=== PATIENT | male | born 1975 | race Caucasian/White ===

== ENCOUNTER → 2021-09-12 | Outpatient (CLI) | payer OTHER ==
--- NOTE | 2021-09-12 09:12 | MR ---
EXAMINATION TYPE: MR knee RT wo con DATE OF EXAM: 09/12/2021 COMPARISON: None. HISTORY: Outer pain and swelling for 45 days. TECHNIQUE: Multiplanar, multisequence imaging of the right knee is performed without IV contrast. FINDINGS: MEDIAL MENISCUS: Oblique signal posterior horn extends to inferior articular surface. Anterior horn i s intact LATERAL MENISCUS: Anterior and posterior horns are intact without tear. CRUCIATE LIGAMENTS: The anterior and posterior cruciate ligaments are intact and unremarkable. COLLATERAL LIGAMENTS: The medial collateral ligament and lateral collateral ligament complex are inta ct and unremarkable. EXTENSOR MECHANISM: Visualized quadriceps and patellar tendons are intact. EFFUSION: No significant suprapatellar joint effusion. POPLITEAL CYST: No popliteal/gonzales cyst. TRICOMPARTMENT SPACES: No significant spurring. Tricompartment joint spaces are fairly well-maintain ed CARTILAGE: Tricompartmental articular cartilage is preserved. BONE MARROW SIGNAL: No focal abnormal marrow signal is appreciated. OTHER: No additional significant abnormality is appreciated. IMPRESSION: Oblique full-thickness tear posterior horn medial meniscus otherwise unremarkable study.
== END | disposition home or self-care (01) ==
LOC: RADMRIMAIN 08:20
PROVIDERS: ATTEND Physician Assistant
DX: M23.321 Other meniscus derangements, posterior horn of medial meniscus, right knee (principal)

== ENCOUNTER → 2021-12-27 | Outpatient (CLI) | payer OTHER ==
[2021-12-27 19:21] LABS: Basophils # (A) 0.05 X 10*3/uL (0.00-0.10); Basophils % (A) 0.7 %; Eosinophils # (A) 0.16 X 10*3/uL (0.04-0.35); Eosinophils % (A) 2.3 %; HCT 47.8 % (39.6-50.0); HGB 16.6 g/dL (13.0-17.0); Immature Grans, Automated 0.4 %; Lymphocytes # (A) 2.26 X 10*3/uL (0.90-5.00); Lymphocytes % (A) 31.9 %; MCH 29.5 pg (27.0-32.0); MCHC 34.7 g/dL (32.0-37.0); MCV 84.9 fL (80.0-97.0); Mean Platelet Volume 11.3 fL (9.5-12.2); Monocytes # (A) 0.46 X 10*3/uL (0.20-1.00); Monocytes % (A) 6.5 %; NRBC Per 100 WBC 0 /100 WBCS (0.0-0.0); Neutrophils # (A) 4.12 X 10*3/uL (1.80-7.70); Neutrophils % (A) 58.2 %; Platelet Count 219 X 10*3/uL (140-440); RBC 5.63 X 10*6/uL (4.40-5.60); RDW 13.1 % (11.5-14.5); WBC 7.08 X 10*3/uL (4.50-10.00)
[2021-12-27 19:33] LABS: Anion Gap 13.7 mmol/L (10.00-18.00); Carbon Dioxide 28.3 mmol/L (20.0-27.5); Potassium 3.9 mmol/L (3.5-5.5)
== END | disposition home or self-care (01) ==
LOC: LABPAT 13:38
PROVIDERS: ATTEND Orthopaedic Surgery
DX: Z01.812 Encounter for preprocedural laboratory examination (principal); M23.91 Unspecified internal derangement of right knee
CPT/HCPCS: 36415; 80051; 85025

== ENCOUNTER 2022-01-22 10:13 | Day surgery (SDC) | payer OTHER ==
[2022-01-18 15:34] VITALS: BMI 35.8
--- NOTE | 2022-01-21 13:21 | HP ---
HISTORY AND PHYSICAL REASON FOR ADMISSION: Surgery scheduled for 01/22/2022 HISTORY OF PRESENT ILLNESS: Darryl Spears is a 46-year-old patient seen with progressive right knee pain. Options were discussed. He elected to proceed with right knee arthroscopy. Consent obtained. PAST MEDICAL HISTORY: Hypertension, hyperlipidemia. PAST SURGICAL HISTORY: Noncontributory. MEDICATIONS: Amlodipine, atenolol, Naprosyn, simvastatin. ALLERGIES: None. SOCIAL HISTORY: Denies tobacco use. PHYSICAL EVALUATION OF THE RIGHT KNEE: Range of motion zero to 130. Mild effusion. Tenderness medial joint line. Positive medial Raúl's. Ligaments stable. Hip rotation without pain. Distal neurovascular exam is intact. RADIOGRAPHS: Radiographs of the right knee revealed moderate osteoarthritic changes. An MRI of the right knee revealed a medial meniscal tear. IMPRESSION: 1. Internal derangement of right knee with medial meniscal tear. 2. Hypertension. 3. Hyperlipidemia. PLAN: Right knee arthroscopy with partial medial meniscectomy and debridement. Surgery scheduled for 01/22/2022. MMODL / IJN: [id number] /
[~2022-01-22 10:13] MED LIST: DEXAMETHASONE SOD PHOSPHATE 4 MG/ML 1 ML VIAL IV ONE; HYDROmorphone 0.5 MG/0.5 ML SYRINGE IVP PRN; LACTATED RINGERS 1,000 ML IV SCH; LIDOCAINE 1% (10MG/ML) FOR IV START INTRADERMA PRN; ONDANSETRON 4 MG/2 ML VIAL IVP ONE; SCOPOLAMINE 1.5MG/72HR PATCH TRANSDERM ONE
[2022-01-22] MEDS ORDERED: BUPIVACAIN-EPI 0.25%-1:200,000 30 ML VIAL INTRAARTIC ONE (12:35)
[2022-01-22] MEDS ORDERED: ceFAZolin 1,000 MG VIAL IVPB ONE (12:35)
--- NOTE | 2022-01-22 13:18 | P.OP ---
Date of Procedure: 01/22/22 Preoperative Diagnosis: Internal derangement right knee Postoperative Diagnosis: 1. Tear medial and lateral meniscus right knee 2. Reactive synovitis medial, lateral and suprapatellar compartments right knee Procedure(s) Performed: 1. Arthroscopic partial medial and lateral meniscectomy right knee 2. Arthroscopic partial synovectomy medial, lateral and suprapatellar compartments right knee Anesthesia: GETA, local Surgeon: Samson Otero Estimated Blood Loss (ml): 7 Pathology: none sent Condition: stable Disposition: PACU Indications for Procedure: 46-year-old patient seen with progressive right knee pain. After treatment options were discussed, he elected to proceed with arthroscopy. Operative Findings: See description of procedure Description of Procedure: Patient was taken to the operative suite. Patient underwent a general anesthetic by the department of anesthesia. Patient was given preoperative antibiotics. The right lower extremity was placed in a well-padded arthroscopic leg vazquez. The right leg was prepped and draped in the normal sterile orthopedic fashion. A lateral parapatellar and suprapatellar incision was made. Trochars were inserted. Arthroscopy was initiated. Suprapatellar pouch revealed diffuse thick reactive synovitis. The patellofemoral joint appeared to articulate congruently. There was grade 1/2 chondromalacia without significant osteochondral tears present. The scope was guided into the medial gutter. No loose bodies or plica were identified The scope was then guided into the medial compartment. A medial parapatellar incision was made. Trocar inserted followed by probe. There was a large tear involving the anterior horn medial meniscus. There was a complex tear involving the posterior horn of the medial meniscus. There was thick reactive synovitis anteriorly. There was grade 1 chondromalacia diffusely with no osteochondral tears present. I performed a partial medial meniscectomy involving anterior and posterior horns getting down to stable me niscal tissue. I performed a partial synovectomy decompressing the thick reactive synovitis. The residual meniscus was stable. There was good decompression of the synovitis. Scope and probe were then guided into the intercondylar notch. Cruciates were identified, probed and found to be stable. The scope and probe were then guided into lateral compartment. There was a radial tear mid body lateral meniscus. There was thick reactive synovitis anteriorly. There was no substantial chondromalacia present. I performed a partial lateral meniscectomy getting down to stable meniscal tissue. I performed a partial synovectomy decompressing the reactive synovitis. The residual meniscus was stable. There was good decompression of the synovitis. The scope was in guided back into the suprapatellar compartment. I introduced a motorized shaver into the suprapatellar compartment. I debrided some piecemeal fragments of meniscus I encountered. I performed a partial synovectomy. Shaver was removed. There was good decompression of the synovitis. I took one more look around the entire knee, no residual debris. Instruments were now removed from the joint. The joint was infiltrated with .25% Marcaine. Steri-Strips were applied to the portal sites. Sterile dressings were applied. The patient was placed into a CLEMENCIA hose. No tourniquet was utilized. The patient was awakened, transferred to a bed and taken to recovery stable satisfactory condition.
[2022-01-22 13:23] VITALS: TEMP 97
[2022-01-22 13:34] VITALS: RESP 16
[2022-01-22 14:30] VITALS: BP 105/69; PULSE 69
[2022-01-23] MEDS ORDERED: LIDOCAINE 1% INJ 10MG/ML (20 ML MDV) ONE (12:30)
[2022-01-23] MEDS ORDERED: fentaNYL (PF) 50 MCG/ML 2 ML AMP ONE (12:30)
[2022-01-23] MEDS ORDERED: SUCCINYLCHOLINE CHLORIDE VIAL 200 MG/10 ML VIAL IV ONE (12:30)
[2022-01-23] MEDS ORDERED: PROPOFOL 10 MG/ML 20 ML VIAL IV ONE (12:30)
== END 2022-01-22 15:35 | disposition home or self-care (01) ==
LOC: OR 10:13
PROVIDERS: ATTEND Orthopaedic Surgery
DX: M23.203 Derangement of unspecified medial meniscus due to old tear or injury, right knee (principal); M23.200 Derangement of unspecified lateral meniscus due to old tear or injury, right knee; M65.861 Other synovitis and tenosynovitis, right lower leg; M94.261 Chondromalacia, right knee; I10 Essential (primary) hypertension; E78.5 Hyperlipidemia, unspecified; F32.A Depression, unspecified; K21.9 Gastro-esophageal reflux disease without esophagitis; E66.9 Obesity, unspecified; Z68.36 Body mass index [BMI] 36.0-36.9, adult; Z79.899 Other long term (current) drug therapy
CPT/HCPCS: 29880; 27334; J1100; J0690 ×2; J2405

== ENCOUNTER 2022-02-19 10:40 | Emergency (ER) | payer OTHER ==
[2022-02-19 10:50] VITALS: TEMP 97.1
[2022-02-19 11:15] VITALS: RESP 16
[2022-02-19 11:43] LABS: Basophils # (A) 0.1 k/uL (0-0.2); Basophils % (A) 1 %; Eosinophils # (A) 0.2 k/uL (0-0.7); Eosinophils % (A) 3 %; HCT 47.3 % (39.0-53.0); HGB 16.8 gm/dL (13.0-17.5); Lymphocytes # (A) 1.7 k/uL (1.0-4.8); Lymphocytes % (A) 25 %; MCH 30.6 pg (25.0-35.0); MCHC 35.5 g/dL (31.0-37.0); MCV 86.4 fL (80.0-100.0); Mean Platelet Volume 8.3; Monocytes # (A) 0.3 k/uL (0-1.0); Monocytes % (A) 5 %; Neutrophils # (A) 4.2 k/uL (1.3-7.7); Neutrophils % (A) 64 %; Platelet Count 230 k/uL (150-450); RBC 5.47 m/uL (4.30-5.90); RDW 13.6 % (11.5-15.5); WBC 6.6 k/uL (3.8-10.6)
[2022-02-19 11:49] LABS: ALT 56 U/L (4-49); AST 38 U/L (17-59); African American GFR (CKD) >90 (>60 ml/min/1.73 sqM); Albumin 4.9 g/dL (3.5-5.0); Alkaline Phosphatase 47 U/L (38-126); Anion Gap 14 mmol/L; Blood Urea Nitrogen 15 mg/dL (9-20); Calcium 9.5 mg/dL (8.4-10.2); Carbon Dioxide 28 mmol/L (22-30); Chloride 96 mmol/L (98-107); Glucose 102 mg/dL (74-99); Lipase 137 U/L (23-300); Magnesium 1.8 mg/dL (1.6-2.3); Non-African American GFR(CKD) >90 (>60 ml/min/1.73 sqM); Potassium 3.7 mmol/L (3.5-5.1); Sodium 138 mmol/L (137-145); Total Bilirubin 0.8 mg/dL (0.2-1.3); Total Protein 8.6 g/dL (6.3-8.2)
[2022-02-19 11:57] LABS: Partial Thromboplastin Time 25.9 sec (22.0-30.0); Prothrombin Time 10.5 sec (9.0-12.0)
--- NOTE | 2022-02-19 12:34 | XR ---
EXAMINATION TYPE: XR chest 2V DATE OF EXAM: 02/19/2022 COMPARISON: NONE HISTORY: Chest pain TECHNIQUE: Frontal and lateral views of the chest are obtained. FINDINGS: There is no focal air space opacity. No evidence for pneumothorax. No pleural effusion. The cardiac silhouette size is within normal limits. The osseous structures are grossly intact. IMPRESSION: 1. No acute cardiopulmonary process.
--- NOTE | 2022-02-19 12:58 | ED ---
Chest Pain HPI - General Chief Complaint: Chest Pain Stated Complaint: chest pain Time Seen by Provider: 02/19/22 10:53 Source: patient, RN notes reviewed Mode of arrival: wheelchair Limitations: no limitations - History of Present Illness Initial Comments: 46-year-old male presents emergency Department chief complaint of rib pain, side pain. Patient states his been dealing with this for last several days. [facility] here to rule out PE secondary to having right meniscus surgery 3-4 weeks ago. He does not feel short of breath. Pain with deep inspiration, hurts when he twists bends or any signs left side. She has no prior cardiac disease denies any palpitations denies any symptoms of leg swelling. He does feel better after taking pain meds at home. - Related Data Home Medications Medication Instructions Recorded Confirmed Cetirizine HCl [Zyrtec] 10 mg PO DAILY 01/18/22 01/22/22 FLUoxetine HCL [PROzac] 60 mg PO DAILY 01/18/22 01/22/22 Omeprazole 20 mg PO DAILY 01/18/22 01/22/22 Simvastatin [Zocor] 80 mg PO DAILY 01/18/22 01/22/22 amLODIPine [Norvasc] 10 mg PO DAILY 01/18/22 01/22/22 atenoloL [Tenormin] 25 mg PO DAILY 01/18/22 01/22/22 buPROPion HCL [Wellbutrin SR] 150 mg PO DAILY 01/18/22 01/22/22 Naproxen Sodium [Naproxen Sodium 500 mg PO DAILY 02/19/22 02/19/22 ER] Previous Rx's Medication Instructions Recorded Cyclobenzaprine [Flexeril] 10 mg PO TID PRN #15 tab 02/19/22 Ibuprofen [Motrin] 600 mg PO Q8HR PRN #20 tab 02/19/22 Allergies Allergy/AdvReac Type Severity Reaction Status Date / Time No Known Allergies Allergy Verified 02/19/22 12:54 Review of Systems ROS Statement: Those systems with pertinent positive or pertinent negative responses have been documented in the HPI. ROS Other: All systems not noted in ROS Statement are negative. Past Medical History Past Medical History: Hyperlipidemia, Hypertension History of Any Multi-Drug Resistant Organisms: None Reported Past Surgical History: Orthopedic Surgery Past Psychological History: No Psychological Hx Reported Smoking Status: Never smoker Past Alcohol Use History: Occasional Past Drug Use History: None Reported General Exam Limitations: no limitations General appearance: alert, in no apparent distress Head exam: Present: atraumatic, normocephalic, normal inspection Eye exam: Present: normal appearance, PERRL, EOMI. Absent: scleral icterus, conjunctival injection, periorbital swelling ENT exam: Present: normal exam, normal oropharynx, mucous membranes moist Neck exam: Present: normal inspection. Absent: tenderness, meningismus, lymphadenopathy Respiratory exam: Present: normal lung sounds bilaterally, chest wall tenderness (left-sided). Absent: respiratory distress, wheezes, rales, rhonchi, stridor Cardiovascular Exam: Present: regular rate, normal rhythm, normal heart sounds. Absent: systolic murmur, diastolic murmur, rubs, gallop, clicks GI/Abdominal exam: Present: soft, normal bowel sounds. Absent: distended, tenderness, guarding, rebound, rigid Course Vital Signs 02/19/22 02/19/22 10:46 11:05 Temperature 97.1 F L Pulse Rate 62 61 Respiratory 18 16 Rate Blood Pressure 128/88 145/99 O2 Sat by Pulse 97 Oximetry Chest Pain MDM - MDM patient's labs including d-dimer, troponin are negative. He does have reproducible left-sided chest wall pain. Patient's symptoms have been present for 5 days with no acute findings I do believe this is related to muscle skeletal pain. We discussed possibility of early shingles patient will be discharged in stable condition with close follow-up with anti-inflammatories return parameters were discussed. Disposition Clinical Impression: Chest wall pain Disposition: HOME SELF-CARE Condition: Stable Instructions (If sedation given, give patient instructions): Chest Wall Pain (ED) Additional Instructions: Please return to the Emergency Department if symptoms worsen or any other concerns. Prescriptions: Cyclobenzaprine [Flexeril] 10 mg PO TID PRN #15 tab PRN Reason: Muscle Spasm Ibuprofen [Motrin] 600 mg PO Q8HR PRN #20 tab PRN Reason: Pain Is patient prescribed a controlled substance at d/c from ED?: No Referrals: [facility],Clinic [Primary Care Provider] - 1-2 days Time of Disposition: 12:58
[2022-02-19] MEDS ORDERED: ACET/COD 300 MG/30 MG STARTER PACK 6 TAB BTL PO STA (13:01)
[2022-02-19 13:14] VITALS: BP 132/80; PULSE 56
== END 2022-02-19 13:14 | disposition home or self-care (01) ==
LOC: EC 10:40
DX: R07.89 Other chest pain (principal); I10 Essential (primary) hypertension
CPT/HCPCS: 36415; 71046; 80053; 83690; 83735; 84484; 85025; 85379; 85610; 85730; 93005; 99285

== ENCOUNTER → 2023-02-28 | Outpatient (CLI) | payer OTHER ==
--- NOTE | 2023-02-28 16:58 | MR ---
EXAMINATION TYPE: MR knee LT wo con DATE OF EXAM: 02/28/2023 COMPARISON: NONE HISTORY: Left knee pain and swelling x 1 year TECHNIQUE: Multiplanar, multisequence images of the knee is performed without IV contrast. FINDINGS: MEDIAL MENISCUS: Oblique signal posterior horn extends to inferior articular surface. LATERAL MENISCUS: Anterior and posterior horns are intact without tear. CRUCIATE LIGAMENTS: The anterior and posterior cruciate ligaments are intact and unremarkable. COLLATERAL LIGAMENTS: The medial collateral ligament and lateral collateral ligament complex are inta ct and unremarkable. EXTENSOR MECHANISM: Visualized quadriceps and patellar tendons are intact. EFFUSION: No significant suprapatellar joint effusion. POPLITEAL CYST: No popliteal/gonzales cyst. TRICOMPARTMENT SPACES: Mild to moderate tricompartment joint space loss. Mild to moderate spurring pa tellofemoral compartment. CARTILAGE: Tricompartmental articular cartilage is fairly well preserved. BONE MARROW SIGNAL: Oval 7 mm low T1 and T2 lesion distal medial femoral condyle coronal image 20 of uncertain etiology but presumed nonaggressive. OTHER: Increased subcutaneous edema superficial prepatellar and infrapatellar region. IMPRESSION: 1. Oblique full-thickness tear posterior horn medial meniscus. 2. Mild to moderate tricompartment degenerative changes greatest patellofemoral compartment as detail ed above.
== END | disposition home or self-care (01) ==
LOC: RADMRIMAIN 08:05
DX: M23.222 Derangement of posterior horn of medial meniscus due to old tear or injury, left knee (principal); M17.12 Unilateral primary osteoarthritis, left knee

== ENCOUNTER 2023-04-16 08:52 | Day surgery (SDC) | payer OTHER ==
[2023-04-12 13:45] VITALS: BMI 36.9
[~2023-04-16 08:52] MED LIST changes: -DEXAMETHASONE SOD PHOSPHATE 4 MG/ML 1 ML VIAL IV ONE; -HYDROmorphone 0.5 MG/0.5 ML SYRINGE IVP PRN; -LIDOCAINE 1% (10MG/ML) FOR IV START INTRADERMA PRN; -ONDANSETRON 4 MG/2 ML VIAL IVP ONE; -SCOPOLAMINE 1.5MG/72HR PATCH TRANSDERM ONE
[2023-04-16 09:54] VITALS: TEMP 97
[2023-04-16] MEDS ORDERED: PROPOFOL 10 MG/ML 20 ML VIAL IV ONE (10:41)
--- NOTE | 2023-04-16 10:56 | P.PCN ---
Date of Procedure: 04/16/23 Procedure(s) Performed: BRIEF HISTORY: Patient is a 47-year-old pleasant male scheduled for an elective colonoscopy as a part of screening for colon cancer. PROCEDURE PERFORMED: Colonoscopy. PREOPERATIVE DIAGNOSIS: Screening for colon cancer. IV sedation per Anesthesia. PROCEDURE: After informed consent was obtained, the patient, was brought into the endoscopy unit. IV sedation was administered by Anesthesia under continuous monitoring. Digital rectal examination was normal. Initially the Olympus CF-160 flexible video colonoscope was then inserted in the rectum, gradually advanced into the cecum without any difficulty. Careful examination was performed as the scope was gradually being withdrawn. Ileocecal valve and the appendiceal orifice were visualized and appeared normal. Prep was fair.. Mucosa of the cecum, ascending colon, transverse colon, descending colon, sigmoid colon, and rectum appeared normal. Retroflexion was performed in the rectum and no lesions were seen. The patient tolerated the procedure well. IMPRESSION: Normal-appearing colon from rectum to cecum with no evidence of colorectal neoplasia. RECOMMENDATIONS: Findings of this examination were discussed with the patient as well as his family. He was advised to have a repeat colonoscopy in 10 years.
[2023-04-16 11:18] VITALS: RESP 20
[2023-04-16 11:44] VITALS: BP 111/70; PULSE 76
== END 2023-04-16 11:49 | disposition home or self-care (01) ==
LOC: ORWHC2ENDO 08:52
PROVIDERS: ATTEND Internal Medicine Gastroenterology
DX: Z12.11 Encounter for screening for malignant neoplasm of colon (principal); I10 Essential (primary) hypertension; E78.5 Hyperlipidemia, unspecified; K21.9 Gastro-esophageal reflux disease without esophagitis; Z79.899 Other long term (current) drug therapy
CPT/HCPCS: 45378; J2704

== ENCOUNTER → 2023-04-24 | Outpatient (CLI) | payer OTHER ==
[2023-04-24 20:38] LABS: Anion Gap 13.1 mmol/L (4.00-12.00); Carbon Dioxide 28.9 mmol/L (21.6-31.8); Potassium 3.7 mmol/L (3.5-5.5)
[2023-04-25 00:21] LABS: Basophils # (A) 0.07 X 10*3/uL (0.00-0.10); Eosinophils # (A) 0.14 X 10*3/uL (0.04-0.35); HCT 44.5 % (39.6-50.0); Lymphocytes # (A) 2.01 X 10*3/uL (0.90-5.00); Lymphocytes % (A) 28.4 %; MCH 29.2 pg (27.0-32.0); MCHC 33.7 d/dL (32.0-37.0); MCV 86.7 FL (80.0-97.0); Mean Platelet Volume 12.2 FL (9.5-12.2); Monocytes % (A) 5.7 %; NRBC Per 100 WBC 0 X 10*3/uL (0.00-0.01); Neutrophils # (A) 4.43 X 10*3/uL (1.80-7.70); Neutrophils % (A) 62.6 %; Platelet Count 232 X 10*3/uL (140-440); RBC 5.13 X 10*6/uL (4.40-5.60); RDW 12.8 % (11.5-14.5); WBC 7.07 X 10*3/uL (4.50-10.00)
== END | disposition home or self-care (01) ==
LOC: LABWHC1 14:50 → LABPAT 14:53
PROVIDERS: ATTEND Orthopaedic Surgery
DX: Z01.818 Encounter for other preprocedural examination (principal); M23.92 Unspecified internal derangement of left knee; R00.1 Bradycardia, unspecified
CPT/HCPCS: 80051; 85025; 93005

== ENCOUNTER 2023-05-02 08:50 | Day surgery (SDC) | payer OTHER ==
[2023-04-29 11:49] VITALS: BMI 36.9
--- NOTE | 2023-05-01 17:31 | HP ---
HISTORY AND PHYSICAL SCHEDULED DATE OF SURGERY: 05/02/2023. HISTORY OF PRESENT ILLNESS: Darryl Spears is a 47-year-old gentleman seen with progressive left knee pain. We discussed options for treatment. He elected to proceed with left knee arthroscopy. Consent was obtained. PAST MEDICAL HISTORY: Hyperlipidemia and hypertension. PAST SURGICAL HISTORY: Noncontributory. DAILY MEDICATIONS: 1. Amlodipine. 2. Atenolol. 3. Naprosyn. 4. Simvastatin. ALLERGIES: None. SOCIAL HISTORY: He denies tobacco use. PHYSICAL EVALUATION OF THE LEFT KNEE: Range of motion is -2/3 to 120 degrees. Moderate effusion. Tenderness, medial joint line. Positive medial Raúl's. Ligaments are stable. Hip rotation is without pain. Distal neurovascular exam is intact. IMAGING STUDIES: Left knee radiographs revealed mild osteoarthritis. MRI left knee revealed medial meniscal tear. IMPRESSION: 1. Internal derangement of left knee with medial meniscal tear. 2. Hypertension. 3. Hyperlipidemia. PLAN: Left knee arthroscopy with partial medial meniscectomy and debridement. MMODL / IJN: [id number] /
[~2023-05-02 08:50] MED LIST changes: -LACTATED RINGERS 1,000 ML IV SCH; +ceFAZolin 3 GM in SODIUM CHLORIDE 0.9% 100 ML IVPB PRN
[2023-05-02] MEDS ORDERED: ONDANSETRON 4 MG/2 ML VIAL IVP ONE (09:14)
[2023-05-02] MEDS ORDERED: LACTATED RINGERS 1,000 ML IV SCH (09:14)
[2023-05-02] MEDS ORDERED: DEXAMETHASONE SOD PHOSPHATE 4 MG/ML 1 ML VIAL IV ONE (09:14)
[2023-05-02] MEDS ORDERED: HYDROmorphone 0.5 MG/0.5 ML SYRINGE IVP PRN (09:14)
[2023-05-02] MEDS ORDERED: PROPOFOL 10 MG/ML 20 ML VIAL IV ONE (10:26)
[2023-05-02] MEDS ORDERED: HYDROmorphone (PF) 1 MG/ML ONE (10:26)
[2023-05-02] MEDS ORDERED: fentaNYL (PF) 50 MCG/ML 2 ML AMP ONE (10:26)
[2023-05-02] MEDS ORDERED: LIDOCAINE 2% INJ 20 MG/ML (2 ML VIAL) ONE (10:26)
[2023-05-02] MEDS ORDERED: MIDAZOLAM 2 MG/2 ML VIAL ONE (10:26)
[2023-05-02] MEDS ORDERED: BUPIVACAINE (PF) 0.25% 30 ML VIAL SQ ONE ×2 (10:27→11:06)
--- NOTE | 2023-05-02 11:24 | P.OP ---
Date of Procedure: 05/02/23 Preoperative Diagnosis: Internal derangement left knee Postoperative Diagnosis: 1. Tear medial and lateral meniscus left knee 2. Reactive synovitis medial, lateral and suprapatellar compartments left knee Procedure(s) Performed: 1. Arthroscopic partial medial and lateral meniscectomy left knee 2. Arthroscopic partial synovectomy medial, lateral and suprapatellar compartments left knee Anesthesia: LEONELA, local Surgeon: Samson Otero Estimated Blood Loss (ml): 7 Pathology: none sent Condition: stable Disposition: PACU Indications for Procedure: 47-year-old patient seen with progressive left knee pain. After treatment options were discussed, he elected to proceed with arthroscopy. Operative Findings: see description of procedure Description of Procedure: Patient was taken to the operative suite. Patient underwent a general anesthetic by the department of anesthesia. Patient was given preoperative antibiotics. The left lower extremity was placed in a well-padded arthroscopic leg vazquez. The left leg was prepped and draped in the normal sterile orthopedic fashion. A lateral parapatellar and suprapatellar incision was made. Trochars were inserted. Arthroscopy was initiated. Suprapatellar pouch revea led diffuse thick reactive synovitis. The patellofemoral joint appeared to articulate congruently. There was grade 1 chondromalacia of the patella with no tears. The scope was guided into the medial gutter. No loose bodies or plica were identified. The scope was then guided into the medial compartment. A medial parapatellar incision was made. Trocar inserted followed by probe. There was a complex tear involving the posterior horn medial meniscus. There were grade 1 chondromalacia changes about the medial compartment with no tears. There was some thick reactive synovitis anteriorly. I performed a partial medial meniscectomy getting down to stable meniscal tissue. I performed a partial synovectomy decompressing reactive synovitis. The residual meniscus was probed and was found to be stable. There was good decompression of the synovitis. Scope and probe were then guided into the intercondylar notch. Cruciates were identified, probed and found to be stable. The scope and probe were then guided into lateral compartment. There was a radial tear mid body lateral meniscus. There was no snapping chondromalacia involving lateral compartment. There was some thick reactive some-itis anteriorly. I performed a partial lateral meniscectomy getting down to stable meniscal tissue. I performed a partial synovectomy decompressing reactive synovitis. The residual meniscus was stable. There was good decompression of the synovitis. The scope was in guided back into the suprapatellar compartment. I introduced a motorized shaver into the suprapatellar compartment. I debrided some piecemeal fragments of meniscus that I encountered. I performed a partial synovectomy. The shaver was now removed. There was good decompression of the synovitis. I took one more look on the entire knee, no residual debris. Instruments were now removed from the joint. The joint was infiltrated with .25% Marcaine. Steri-Strips were applied to the portal sites. Sterile dressings were applied. The patient was placed into a CLEMENCIA hose. No tourniquet was utilized. The patient was awakened, transferred to a bed and taken to recovery stable satisfactory condition.
[2023-05-02 11:25] VITALS: TEMP 97.2
[2023-05-02 13:18] VITALS: BP 124/77; PULSE 60; RESP 18
== END 2023-05-02 13:15 | disposition home or self-care (01) ==
LOC: OR 08:50
PROVIDERS: ATTEND Orthopaedic Surgery
DX: S83.242A Other tear of medial meniscus, current injury, left knee, initial encounter (principal); S83.282A Other tear of lateral meniscus, current injury, left knee, initial encounter; M65.862 Other synovitis and tenosynovitis, left lower leg; M17.12 Unilateral primary osteoarthritis, left knee; I10 Essential (primary) hypertension; E78.5 Hyperlipidemia, unspecified; I48.91 Unspecified atrial fibrillation; K21.9 Gastro-esophageal reflux disease without esophagitis; Z79.899 Other long term (current) drug therapy
CPT/HCPCS: 29880; J2250; J1100; J0690; J2405; J3010; J1170; J2704; J2001

== ENCOUNTER 2023-05-08 07:30 | Inpatient (IN) | payer OTHER ==
[2023-05-08] MEDS ORDERED: IBUPROFEN 600 MG TAB PO STA (07:45)
[2023-05-08] MEDS ORDERED: HYDROmorphone 0.5 MG/0.5 ML SYRINGE IVP STA (07:50)
--- NOTE | 2023-05-08 07:55 | ED ---
General Adult HPI - General Chief complaint: Extremity Injury, Lower Stated complaint: L KNEE PAIN Time Seen by Provider: 05/08/23 07:33 Source: patient, EMS, RN notes reviewed Mode of arrival: EMS Limitations: no limitations - History of Present Illness Initial comments: Patient is a 47 year old male transferred to the ER from [facility] via EMS with a chief complaint of pain and fevers. At [facility], they were concerned for possible DVT since the patient is 6 days out from a left knee arthroscopy. Patient is experiencing extreme pain and received Morphine at [facility]. Patient reports he was sent home with Norcos from his procedure which he is now out of. He reports he has been taking Tylenol 3s for pain at home. Patient states he waited 3 days post op to shower. Patient denies any nausea, chest pain, shortness of breath, abdominal pain, constipation/diarrhea, or urinary symptoms. - Related Data Home Medications Medication Instructions Recorded Confirmed Cetirizine HCl [Zyrtec] 10 mg PO QAM 01/18/22 05/08/23 FLUoxetine HCL [PROzac] 60 mg PO QAM 01/18/22 05/08/23 Omeprazole 20 mg PO QAM 01/18/22 05/08/23 Simvastatin [Zocor] 80 mg PO QAM 01/18/22 05/08/23 amLODIPine [Norvasc] 10 mg PO QAM 01/18/22 05/08/23 atenoloL [Tenormin] 25 mg PO QAM 01/18/22 05/08/23 buPROPion HCL [Wellbutrin SR] 150 mg PO QAM 01/18/22 05/08/23 Naproxen Sodium [Naproxen Sodium 500 mg PO QAM 02/19/22 05/08/23 ER] Previous Rx's Medication Instructions Recorded HYDROcodone/APAP 5-325MG [[place] 1 tab PO Q6HR PRN #12 tab 05/02/23 5-325] Allergies Allergy/AdvReac Type Severity Reaction Status Date / Time No Known Allergies Allergy Verified 05/08/23 10:26 Review of Systems ROS Statement: Those systems with pertinent positive or pertinent negative responses have been documented in the HPI. ROS Other: All systems not noted in ROS Statement are negative. Past Medical History Past Medical History: Hyperlipidemia, Hypertension History of Any Multi-Drug Resistant Organisms: None Reported Past Surgical History: Orthopedic Surgery Additional Past Surgical History / Comment(s): Right & L knee surgery. Past Anesthesia/Blood Transfusion Reactions: No Reported Reaction Past Psychological History: No Psychological Hx Reported Smoking Status: Never smoker Past Alcohol Use History: Occasional Past Drug Use History: None Reported - Past Family History Father Family Medical History: Cancer General Exam Limitations: no limitations General appearance: alert, in no apparent distress, anxious Respiratory exam: Present: normal lung sounds bilaterally. Absent: respiratory distress, wheezes, rales, rhonchi, stridor Cardiovascular Exam: Present: regular rate, normal rhythm, normal heart sounds. Absent: systolic murmur, diastolic murmur, rubs, gallop, clicks GI/Abdominal exam: Present: soft, normal bowel sounds. Absent: distended, tenderness, guarding, rebound, rigid Extremities exam: Present: other (compression stocking on left leg; steri strips noted on left knee; no erythema, ecchymosis noted; slight edema noted of left knee; negative left Everette's or calf tenderness) Neurological exam: Present: alert, oriented X3, CN II-XII intact Skin exam: Present: warm, intact, diaphoretic (mild) Course Vital Signs 05/08/23 05/08/23 07:31 09:58 Temperature 100.6 F H 98.6 F Pulse Rate 77 Respiratory 18 Rate Blood Pressure 148/106 O2 Sat by Pulse 97 Oximetry Medical Decision Making - Medical Decision Making Was pt. sent in by a medical professional or institution (, PA, AIRCRAFT REFUELLER, urgent care, hospital, or long term...) When possible be specific @ -[facility] Did you speak to anyone other than the patient for history (EMS, parent, family, police, friend...)? What history was obtained from this source @ -No Did you review nursing and triage notes (agree or disagree)? Why? @ -I reviewed and agree with nursing and triage notes Were old charts reviewed (outside hosp., previous admission, EMS record, old EKG, old radiological studies, urgent care reports/EKG's, long term records)? Report findings @ -Reviewed recent or notes Differential Diagnosis (chest pain, altered mental status, abdominal pain women, abdominal pain men, vaginal bleeding, weakness, fever, dyspnea, syncope, headache, dizziness, GI bleed, back pain, seizure, CVA, palpatations, mental health, musculoskeletal)? @ -Knee pain, knee infection, EKG interpreted by me (3pts min.). @ -None X-rays interpreted by me (1pt min.). @ -Chest x-ray shows no acute process CT interpreted by me (1pt min.). @ -None done U/S interpreted by me (1pt. min.). @ -None done What testing was considered but not performed or refused? (CT, X-rays, U/S, labs)? Why? @ -None What meds were considered but not given or refused? Why? @ -None Did you discuss the management of the patient with other professionals (professionals i.e. , PA, AIRCRAFT REFUELLER, lab, RT, psych nurse, social work associate, battery loader, teacher, armored vehicle officer, correctional case manager)? Give summary @ -[Discussed the case with Brent Hernandez/yesika herr who came and evaluated the patient patient will go to the OR. They will take the patient for surgery I did ask about antibiotics prophylactically and which this will be ordered by orthopedics. I did discuss case with medicine who will be on consult and consult infectious disease. Was smoking cessation discussed for >3mins.? @ -No Was critical care preformed (if so, how long)? @ -No Were there social determinants of health that impacted care today? How? (Homelessness, low income, unemployed, alcoholism, drug addiction, transportation, low edu. Level, literacy, decrease access to med. care, fdc, rehab)? @ -No Was there de-escalation of care discussed even if they declined (Discuss DNR or withdrawal of care, Hospice)? DNR status @ -No What co-morbidities impacted this encounter? (DM, HTN, Smoking, COPD, CAD, Cancer, CVA, ARF, Chemo, Hep., AIDS, mental health diagnosis, sleep apnea, morbid obesity)? @ -None Was patient admitted / discharged? Hospital course, mention meds given and route, prescriptions, significant lab abnormalities, going to OR and other pertinent info. @ -Admitted patient retaken lower for surgery, washout secondary to left knee infection patient had recent meniscus surgery. Antibiotics will be ordered by orthopedics as directed. Undiagnosed new problem with uncertain prognosis? @ -No Drug Therapy requiring intensive monitoring for toxicity (Heparin, Nitro, Insulin, Cardizem)? @ -No Were any procedures done? @ -No Diagnosis/symptom? @ -Left knee infection Acute, or Chronic, or Acute on Chronic? @ -Acute Uncomplicated (without systemic symptoms) or Complicated (systemic symptoms)? @ -complicated Side effects of treatment? @ -No Exacerbation, Progression, or Severe Exacerbation? @ -No Poses a threat to life or bodily function? How? (Chest pain, [place], AL, pneumonia, PE, COPD, DKA, ARF, appy, cholecystitis, CVA, Diverticulitis, Homicidal, Suicidal, threat to staff... and all critical care pts) @ -No - Lab Data Result diagrams: 05/08/23 07:53 05/08/23 07:53 Lab Results 05/08/23 05/08/23 05/08/23 Range/Units 07:53 07:53 07:53 WBC 12.5 H (3.8-10.6) k/uL RBC 4.76 (4.30-5.90) m/uL Hgb 14.2 (13.0-17.5) gm/dL Hct 39.5 (39.0-53.0) % MCV 82.9 (80.0-100.0) fL MCH 29.8 (25.0-35.0) pg MCHC 35.9 (31.0-37.0) g/dL RDW 13.1 (11.5-15.5) % Plt Count 327 (150-450) k/uL MPV 8.6 Neutrophils % 76 % Lymphocytes % 15 % Monocytes % 6 % Eosinophils % 1 % Basophils % 0 % Neutrophils # 9.5 H (1.3-7.7) k/uL Lymphocytes # 1.9 (1.0-4.8) k/uL Monocytes # 0.8 (0-1.0) k/uL Eosinophils # 0.1 (0-0.7) k/uL Basophils # 0.0 (0-0.2) k/uL Hyperchromasia Slight Poikilocytosis Slight Sodium 133 L (137-145) mmol/L Potassium 3.3 L (3.5-5.1) mmol/L Chloride 91 L (98-107) mmol/L Carbon Dioxide 30 (22-30) mmol/L Anion Gap 12 mmol/L BUN 20 (9-20) mg/dL Creatinine 1.00 (0.66-1.25) mg/dL Est GFR (CKD-EPI)AfAm >90 (>60 ml/min/1.73 sqM) Est GFR (CKD-EPI)NonAf >90 (>60 ml/min/1.73 sqM) Glucose 154 H (74-99) mg/dL Calcium 8.4 (8.4-10.2) mg/dL Total Bilirubin 0.9 (0.2-1.3) mg/dL AST 52 (17-59) U/L ALT 81 H (4-49) U/L Alkaline Phosphatase 72 (38-126) U/L Total Protein 7.3 (6.3-8.2) g/dL Albumin 3.9 (3.5-5.0) g/dL Urine Color Urine Appearance (Clear) Urine pH (5.0-8.0) Ur Specific Ferriday (1.001-1.035) Urine Protein (Negative) Urine Glucose (UA) (Negative) Urine Ketones (Negative) Urine Blood (Negative) Urine Nitrite (Negative) Urine Bilirubin (Negative) Urine Urobilinogen (<2.0) mg/dL Ur Leukocyte Esterase (Negative) Influenza Type A (PCR) Not Detected (Not Detectd) Influenza Type B (PCR) Not Detected (Not Detectd) RSV (PCR) Not Detected (Not Detectd) SARS-CoV-2 (PCR) Not Detected (Not Detectd) 05/08/23 Range/Units 10:04 WBC (3.8-10.6) k/uL RBC (4.30-5.90) m/uL Hgb (13.0-17.5) gm/dL Hct (39.0-53.0) % MCV (80.0-100.0) fL MCH (25.0-35.0) pg MCHC (31.0-37.0) g/dL RDW (11.5-15.5) % Plt Count (150-450) k/uL MPV Neutrophils % % Lymphocytes % % Monocytes % % Eosinophils % % Basophils % % Neutrophils # (1.3-7.7) k/uL Lymphocytes # (1.0-4.8) k/uL Monocytes # (0-1.0) k/uL Eosinophils # (0-0.7) k/uL Basophils # (0-0.2) k/uL Hyperchromasia Poikilocytosis Sodium (137-145) mmol/L Potassium (3.5-5.1) mmol/L Chloride (98-107) mmol/L Carbon Dioxide (22-30) mmol/L Anion Gap mmol/L BUN (9-20) mg/dL Creatinine (0.66-1.25) mg/dL Est GFR (CKD-EPI)AfAm (>60 ml/min/1.73 sqM) Est GFR (CKD-EPI)NonAf (>60 ml/min/1.73 sqM) Glucose (74-99) mg/dL Calcium (8.4-10.2) mg/dL Total Bilirubin (0.2-1.3) mg/dL AST (17-59) U/L ALT (4-49) U/L Alkaline Phosphatase (38-126) U/L Total Protein (6.3-8.2) g/dL Albumin (3.5-5.0) g/dL Urine Color Yellow Urine Appearance Clear (Clear) Urine pH 6.0 (5.0-8.0) Ur Specific [place] 1.013 (1.001-1.035) Urine Protein Negative (Negative) Urine Glucose (UA) Negative (Negative) Urine Ketones Negative (Negative) Urine Blood Negative (Negative) Urine Nitrite Negative (Negative) Urine Bilirubin Negative (Negative) Urine Urobilinogen <2.0 (<2.0) mg/dL Ur Leukocyte Esterase Negative (Negative) Influenza Type A (PCR) (Not Detectd) Influenza Type B (PCR) (Not Detectd) RSV (PCR) (Not Detectd) SARS-CoV-2 (PCR) (Not Detectd) Disposition Clinical Impression: Infection of left knee Disposition: ADMITTED IP TO THIS HOSP Referrals: [facility],Clinic [Primary Care Provider] - 1-2 days Time of Disposition: 10:01
[2023-05-08 08:03] LABS: Basophils % (A) 0 %; Eosinophils # (A) 0.1 k/uL (0-0.7); Eosinophils % (A) 1 %; HCT 39.5 % (39.0-53.0); HGB 14.2 gm/dL (13.0-17.5); Hyperchromasia Slight; Lymphocytes # (A) 1.9 k/uL (1.0-4.8); Lymphocytes % (A) 15 %; MCH 29.8 pg (25.0-35.0); MCHC 35.9 g/dL (31.0-37.0); MCV 82.9 fL (80.0-100.0); Mean Platelet Volume 8.6; Monocytes # (A) 0.8 k/uL (0-1.0); Monocytes % (A) 6 %; Neutrophils # (A) 9.5 k/uL (1.3-7.7); Neutrophils % (A) 76 %; Platelet Count 327 k/uL (150-450); Poikilocytosis Slight; RBC 4.76 m/uL (4.30-5.90); RDW 13.1 % (11.5-15.5); WBC 12.5 k/uL (3.8-10.6)
[2023-05-08 08:14] LABS: ALT 81 U/L (4-49); AST 52 U/L (17-59); African American GFR (CKD) >90 (>60 ml/min/1.73 sqM); Albumin 3.9 g/dL (3.5-5.0); Alkaline Phosphatase 72 U/L (38-126); Anion Gap 12 mmol/L; Blood Urea Nitrogen 20 mg/dL (9-20); Calcium 8.4 mg/dL (8.4-10.2); Carbon Dioxide 30 mmol/L (22-30); Chloride 91 mmol/L (98-107); Glucose 154 mg/dL (74-99); Non-African American GFR(CKD) >90 (>60 ml/min/1.73 sqM); Potassium 3.3 mmol/L (3.5-5.1); Sodium 133 mmol/L (137-145); Total Bilirubin 0.9 mg/dL (0.2-1.3); Total Protein 7.3 g/dL (6.3-8.2)
--- NOTE | 2023-05-08 08:36 | US ---
EXAMINATION TYPE: US venous doppler duplex LE LT DATE OF EXAM: 05/08/2023 8:26 AM COMPARISON: NONE CLINICAL INDICATION: Male, 47 years old with history of post op pain; TKR x 6 days ago. Pain. No re dness. Not on blood thinners. SIDE PERFORMED: Left TECHNIQUE: The lower extremity deep venous system is examined utilizing real time linear array sonog lachelle with graded compression, doppler sonography and color-flow sonography. VESSELS IMAGED: Common Femoral Vein Deep Femoral Vein Greater Saphenous Vein * Femoral Vein Popliteal Vein Small Saphenous Vein * Proximal Calf Veins (* superficial vessels) Grayscale, color doppler, spectral doppler imaging performed of the deep veins of the left lower extr emity. There is normal flow, compressibility, vascular waveforms. Left Leg: Negative for DVT IMPRESSION: No ultrasound evidence for deep venous thrombosis of the left lower extremity.
--- NOTE | 2023-05-08 09:56 | XR ---
EXAMINATION TYPE: XR chest 2V DATE OF EXAM: 05/08/2023 9:51 AM COMPARISON: Chest radiographs from 02/19/2022 TECHNIQUE: XR chest 2V Frontal and lateral views of the chest. CLINICAL INDICATION:Male, 47 years old with history of fever; FINDINGS: Lungs/Pleura: There is no evidence of pleural effusion, focal consolidation, or pneumothorax. Pulmonary vascularity: Unremarkable. Heart/mediastinum: Cardiomediastinal silhouette is unremarkable. Musculoskeletal: No acute osseous pathology. IMPRESSION: No acute cardiopulmonary disease/process.
[2023-05-08 10:19] LABS: Appearance,Urine Clear (Clear); Bilirubin,Urine Negative (Negative); Blood,Urine Negative (Negative); Color,Urine Yellow; Glucose,Urine (UA) Negative (Negative); Ketones,Urine Negative (Negative); Leukocyte Esterase,Urine Negative (Negative); Nitrite,Urine Negative (Negative); Protein,Urine Negative (Negative); Specific Gravity,Urine 1.013 (1.001-1.035); Urobilinogen,Urine <2.0 mg/dL (<2.0)
[2023-05-08] MEDS ORDERED: ONDANSETRON 4 MG/2 ML VIAL IVP PRN (10:28)
[2023-05-08] MEDS ORDERED: NALOXONE 0.4 MG/ML 1 ML VIAL IV PRN (10:28)
[2023-05-08] MEDS ORDERED: HYDROcodone/APAP 5-325MG 1 EACH TAB PO PRN ×2 (10:28→15:15)
[2023-05-08] MEDS ORDERED: LACTATED RINGERS 1,000 ML IV ONE (11:08)
[2023-05-08] MEDS ORDERED: ONDANSETRON 4 MG/2 ML VIAL ONE (11:12)
[2023-05-08] MEDS ORDERED: fentaNYL (PF) 50 MCG/ML 2 ML AMP ONE (11:12)
[2023-05-08] MEDS ORDERED: MIDAZOLAM 2 MG/2 ML VIAL ONE (11:12)
[2023-05-08] MEDS ORDERED: PROPOFOL 10 MG/ML 20 ML VIAL IV ONE (11:12)
[2023-05-08] MEDS ORDERED: hydrALAZINE HCL 20 MG/ML 1 ML VIAL ONE (11:12)
[2023-05-08] MEDS ORDERED: HYDROmorphone (PF) 1 MG/ML ONE (11:12)
[2023-05-08] MEDS ORDERED: LIDOCAINE 2% INJ 20 MG/ML (2 ML VIAL) ONE (11:12)
[2023-05-08] MEDS ORDERED: SUCCINYLCHOLINE CHLORIDE 200 MG/10 ML VIAL IV ONE (11:12)
--- NOTE | 2023-05-08 11:21 | P.HPOR ---
History of Present Illness H&P Date: 05/08/23 Chief Complaint: Left knee pain, history of recent left knee arthroscopy Patient is a 47-year-old male who presented to [facility] after being transferred down from the [facility] earlier this morning. Patient woke up in the middle of night with severe left knee pain, difficulty with ambulation and fevers and chills. Patient recently underwent a left knee arthroscopy by Dr. Otero on 05/02/2023. Since being home patient has been utilizing crutches for ambulation. He denies initially presented [facility] for evaluation, there is concerns for possible blood clot versus infection, he was then transferred down to our hospital for further care. Patient was evaluated in the emergency room today, he is resting at bedside, he has multiple family members present. Patient minutes to severe pain involving the left knee, he has a very time flexing or extending the knee. He notes radiating pain into the anterior and posterior aspect of the upper leg. He has been having a very difficult time weightbearing since early this morning. He does admit fever and chills. Lab results were reviewed, ESR was noted at 69, CRP was noted at 12, both these labs were done at [facility]. A Doppler ultrasound was done to [facility], this was negative for any DVT. Patient states he has been taking the pain medication as instructed along with icing and elevating. He has no other orthopedic complaints at this time. He denies any recent trauma. Currently patient denies headaches, lightheadedness, chest pain, shortness of breath, abdominal discomfort, nausea or vomiting. Review of Systems Constitutional: Reports as per HPI Past Medical History Past Medical History: Hyperlipidemia, Hypertension History of Any Multi-Drug Resistant Organisms: None Reported Past Surgical History: Orthopedic Surgery Additional Past Surgical History / Comment(s): Right & L knee surgery. Past Anesthesia/Blood Transfusion Reactions: No Reported Reaction Past Psychological History: No Psychological Hx Reported Smoking Status: Never smoker Past Alcohol Use History: Occasional Past Drug Use History: None Reported - Past Family History Father Family Medical History: Cancer Medications and Allergies Home Medications Medication Instructions Recorded Confirmed Type Cetirizine HCl [Zyrtec] 10 mg PO QAM 01/18/22 05/08/23 History FLUoxetine HCL [PROzac] 60 mg PO QAM 01/18/22 05/08/23 History Omeprazole 20 mg PO QAM 01/18/22 05/08/23 History Simvastatin [Zocor] 80 mg PO QAM 01/18/22 05/08/23 History amLODIPine [Norvasc] 10 mg PO QAM 01/18/22 05/08/23 History atenoloL [Tenormin] 25 mg PO QAM 01/18/22 05/08/23 History buPROPion HCL [Wellbutrin SR] 150 mg PO QAM 01/18/22 05/08/23 History Naproxen Sodium [Naproxen Sodium 500 mg PO QAM 02/19/22 05/08/23 History ER] HYDROcodone/APAP 5-325MG [[place] 1 tab PO Q6HR PRN #12 tab 05/02/23 05/08/23 Rx 5-325] Allergies Allergy/AdvReac Type Severity Reaction Status Date / Time No Known Allergies Allergy Verified 05/08/23 10:26 Physical Examination Left lower extremity: No obvious open lesions or sores are visualized. The Steri-Strips are present over the anterior aspect of the knee near the medial and lateral joint line. There is no obvious drainage present, there is some dried blood noted on the Steri-Strips. There is an effusion present on the knee. Passive extension and flexion of the do reproduce significant pain, he is very limited active flexion and extension at the knee due to pain. Tenderness with palpation throughout the anterior medial and lateral aspect of the knee. No tenderness with palpation to the lower leg, foot or ankle Logroll maneuver the hip reproduces no groin pain. Plantar flexion, dorsiflexion, EHL, FHL are intact. Calf is soft, no tenderness with palpation Sensory exam to light touch is intact throughout the extremity, dorsalis pedis pulses 2+ Results - Labs Labs: Abnormal Lab Results - Last 24 Hours (Table) 05/08/23 05/08/23 Range/Units 07:53 07:53 WBC 12.5 H (3.8-10.6) k/uL Neutrophils # 9.5 H (1.3-7.7) k/uL Sodium 133 L (137-145) mmol/L Potassium 3.3 L (3.5-5.1) mmol/L Chloride 91 L (98-107) mmol/L Glucose 154 H (74-99) mg/dL ALT 81 H (4-49) U/L H & H 05/08/23 Range/Units 07:53 Hgb 14.2 (13.0-17.5) gm/dL Hct 39.5 (39.0-53.0) % Result Diagrams: 05/08/23 07:53 05/08/23 07:53 Assessment and Plan Assessment: Left knee pain Left knee effusion Elevated CRP and SED rate Likely septic left knee arthropathy History of recent left knee arthroscopy Plan: I was able to discuss the case, this including both physical exam findings and imaging studies and maintaining Dr. Otero. Due to the high likelihood of a septic arthropathy involving the left knee, we did before the patient for an urgent left knee arthroscopy with lavage and synovectomy. Patient has been nothing by mouth since last night he states. Risk and benefits of procedure were discussed with the patient and family today at bedside, this including but not worsening infection, blood loss, neurovascular injury, development of blood clots, need for subsequent surgery, pain and stiffness. Patient is in good understanding and would like to proceed. Consent will be obtained prior to the procedure Surgery was scheduled for 05/08/2023, he was brought up to the preoperative area for further workup Infectious disease and internal medicine consults for management Further recommendations to follow Time with Patient: Less than 30
[2023-05-08] MEDS ORDERED: SODIUM CHLORIDE 0.9% 50 ML with ceFAZolin 1,000 MG IV ONE ×4 (11:40→11:41)
[2023-05-08] MEDS ORDERED: VANCOMYCIN IV PER PHARMACY 1 EACH MISC MISCELLANE PRN (11:43)
[2023-05-08] MEDS ORDERED: ceFAZolin 3,000 MG in SODIUM CHLORIDE 0.9% IRRIGATIO 3,000 ML IRRIGATION ONE (11:47)
[2023-05-08] MEDS ORDERED: VANCOMYCIN 1,500 MG in SODIUM CHLORIDE 0.9% 500 ML 500 ML IVPB SCH (12:00)
--- NOTE | 2023-05-08 12:15 | P.OP ---
Date of Procedure: 05/08/23 Preoperative Diagnosis: Left knee septic arthritis Postoperative Diagnosis: Left knee septic arthritis Procedure(s) Performed: Arthroscopic partial synovectomy medial, lateral and suprapatellar compartments left knee Anesthesia: LEONELA Surgeon: Samson Otero Estimated Blood Loss (ml): 10 Pathology: none sent Condition: stable Disposition: PACU Indications for Procedure: 47-year-old gentleman seen with probable left knee septic arthritis with history of recent arthroscopic surgery. I discussed this with the patient and his significant other. I discussed arthroscopy with partial synovectomy and lavage. He was agreeable. Consent was obtained. Operative Findings: See description of procedure Description of Procedure: Patient was taken to the operative suite. Patient underwent a general anesthetic by the department of anesthesia. The left lower extremity was placed in a well-padded arthroscopic leg vazquez. The left leg was prepped and draped in the normal sterile orthopedic fashion. A lateral parapatellar and suprapatellar incision was made through the previous incision. Trochars were inserted. I merely encountered significant synovial fluid which appeared to have some purulence. Cultures were obtained of this. The patient was now given 2 g of Kefzol. Arthroscopy was initiated. Suprapatellar pouch revealed diffuse thick reactive synovitis along with some blood clotting. Motorize shaver was introduced I debrided that out.. The patellofemoral joint appeared articulate congruently. There was grade 2 chondromalacia. The scope was guided into the medial gutter. I guided the shaver into the area and debrided out some blood clot and synovial tissue. The scope was then guided into the medial compartment. A medial parapatellar incision was made. Trocar inserted followed by probe. Again noted blood clotting in thickened reactive synovial tissue. I introduced a motorized shaver. I debrided out the blood clot. I performed a extensive partial synovectomy. I probed the meniscus and was stable with evidence of previous partial meniscectomy. Scope and probe were then guided into the intercondylar notch. Cruciates were identified, probed and found to be stable again noted some blood clotting and thick synovial tissue. I introduced a motorized shaver and debrided out the blood clotting and performed a partial synovectomy.. The scope and probe were then guided into lateral compartment. I noted some blood clotting lateral compartment as well as thickened reactive synovial tissue. I reduced the motorize shaver and debrided out the blood clotting and performed an extensive partial synovectomy. The meniscus was probed and it was found to be stable with evidence of prior partial meniscectomy midbody area. The scope was in guided back into the suprapatellar compartment. I reduced the motorize shaver back into the suprapatellar compartment. I again performed a extensive partial synovectomy. I now began irrigating all 3 compartments with a total of 600 mL of irrigant. I now on an antibiotic irrigant and I again went through all 3 compartments irrigating all 3 compartments with our 300 mL of antibiotic irrigant. I now took one more look on the entire knee and noted no residual debris was adequate partial synovectomy. Instruments were now removed from the joint. The the portal sites were loosely approximated nylon suture. I applied sterile dressings. I applied a CLEMENCIA hose. No tourniquet was utilized. The patient was awakened, transferred to a bed and taken to recovery stable satisfactory condition.
[2023-05-08] MEDS ORDERED: HYDROcodone/APAP 7.5-325MG 1 EACH TAB PO PRN (12:32)
[2023-05-08] MEDS: SODIUM CHLORIDE 0.9% 1,000 ML IV SCH (14:18)
[2023-05-08] MEDS: HYDROmorphone 0.5 MG/0.5 ML SYRINGE IVP PRN ×3 (14:19→23:00)
[2023-05-08] MEDS: VANCOMYCIN 1,500 MG in SODIUM CHLORIDE 0.9% 500 ML 500 ML IVPB SCH (15:54)
[2023-05-08] MEDS: traMADol 50 MG TAB PO SCH ×2 (15:56→21:19)
--- NOTE | 2023-05-08 18:11 | P.CONS ---
History of Present Illness - Reason for Consult Consult date: 05/08/23 - Chief Complaint knee pain, medical management - History of Present Illness 47-year-old man with a medical history of hypertension, hyperlipidemia, osteoarthritis status post op day 6 after TKA presented knee pain, fevers, chills. Medicine was consulted for medical management by orthopedic surgery service. Patient woke up this morning with severe stiffness, fevers, pain in his knee prompting his evaluation in the emergency room. Patient says that his pain never totally went away postoperatively, but progressively got worse and then suddenly exacerbated this morning. He denies nausea, vomiting, chest pain, palpitations, syncope, presyncope, cough, dyspnea, abdominal pain, constipation, diarrhea, dysuria, dyschezia, numbness/weakness of extremities. In the emergency room, patient's febrile to 100.6, 148/106, heart rate 77, 97% on room air. CBC shows leukocytosis is 1.5. Basic metabolic panel shows hyponatremia to 133, potassium of 3.3, chloride of 91, otherwise unremarkable. Liver function test shows an ALT of 81, AST 52, otherwise unremarkable. UA was unremarkable. Influenza A, B, RSV, Covid were negative. Chest x-ray shows clear breath bilaterally with a normal sized heart with no acute infiltrates or opacities. Patient was seen by orthopedic surgery service and taken urgently to the operating room for synovectomy, washout for suspected left knee septic arthritis. Patient was then placed on the medical floor with consultation to our medical service. All Systems reviewed and pertinent positives and negatives noted in HPI, all other symptoms are negative Gen: in no apparent distress, resting comfortably in bed Eyes: PERRL, no scleral injection or icterus HENT: normocephalic, atraumatic, good hearing acuity, moist mucous membranes Neck: no tracheal deviation, full range of motion Resp: good air exchange, breathing comfortably with no accessory muscle use, no tactile fremitus CVS: good distal perfusion x 4, no pitting edema GI: soft, NTTP, ND, no hepatosplenomegaly : no suprapubic tenderness, no CVAT, mario catheter not present MSK: no clubbing, no cyanosis, no noted contractures of extremities Skin: no noted rashes, petechiae; temperature of skin is appropriate Neuro: moving all extremities without signs of weakness, CN II-XII intact Psych: cooperative, euthymic mood, insight and judgment intact Labs and imaging as above Assessment: Septic arthritis Hypertension Hyperlipidemia Plan: Vital signs reviewed and noted in the HPI Lab work reviewed and noted in the HPI Chest x-ray was personally interpreted by me and noted in HPI Case was discussed with the Emergency Room provider who recommended orthopedic surgery at admission with medicine consultation Pain control: Gary 7.5/325 every 6 hours when necessary Blood pressure: Atenolol 25 mg daily, amlodipine 10 mg daily Antibiotics: Vancomycin, dosing based on vancomycin trough IV fluids: Normal saline at 75 mL per hour Patient is full code Past Medical History Past Medical History: Hyperlipidemia, Hypertension History of Any Multi-Drug Resistant Organisms: None Reported Past Surgical History: Orthopedic Surgery Additional Past Surgical History / Comment(s): Right & L knee surgery. Past Anesthesia/Blood Transfusion Reactions: No Reported Reaction Past Psychological History: No Psychological Hx Reported Smoking Status: Never smoker Past Alcohol Use History: Occasional Past Drug Use History: None Reported - Past Family History Father Family Medical History: Cancer Medications and Allergies Home Medications Medication Instructions Recorded Confirmed Type Cetirizine HCl [Zyrtec] 10 mg PO QAM 01/18/22 05/08/23 History FLUoxetine HCL [PROzac] 60 mg PO QAM 01/18/22 05/08/23 History Omeprazole 20 mg PO QAM 01/18/22 05/08/23 History Simvastatin [Zocor] 80 mg PO QAM 01/18/22 05/08/23 History amLODIPine [Norvasc] 10 mg PO QAM 01/18/22 05/08/23 History atenoloL [Tenormin] 25 mg PO QAM 01/18/22 05/08/23 History buPROPion HCL [Wellbutrin SR] 150 mg PO QAM 01/18/22 05/08/23 History Naproxen Sodium [Naproxen Sodium 500 mg PO QAM 02/19/22 05/08/23 History ER] HYDROcodone/APAP 5-325MG [Gary 1 tab PO Q6HR PRN #12 tab 05/02/23 05/08/23 Rx 5-325] Allergies Allergy/AdvReac Type Severity Reaction Status Date / Time No Known Allergies Allergy Verified 05/08/23 10:26 Physical Exam Osteopathic Statement: *. No significant issues noted on an osteopathic structural exam other than those noted in the History and Physical/Consult. Vitals: Vital Signs Temp Pulse Pulse Resp BP BP Pulse Ox 05/08/23 16:47 97.7 F 96 18 146/90 93 L 05/08/23 13:30 85 18 142/72 96 05/08/23 13:15 84 18 155/79 96 05/08/23 13:00 85 18 146/78 96 05/08/23 12:45 85 18 141/75 96 05/08/23 12:30 81 18 153/89 96 05/08/23 12:15 82 18 152/87 96 05/08/23 12:10 97.2 F L 78 18 153/92 94 L 05/08/23 11:03 97 F L 72 16 149/71 95 05/08/23 10:00 72 110/71 94 L 05/08/23 09:58 98.6 F 05/08/23 09:00 78 124/81 94 L 05/08/23 08:00 76 148/106 95 05/08/23 07:31 100.6 F H 77 18 148/106 97 Intake and Output 05/08/23 05/08/23 05/08/23 06:59 14:59 22:59 Intake Total 801.5 Output Total 10 Balance 791.5 Intake: IV 801.5 Output: Estimated Blood Loss 10 Other: Weight 97.522 kg Results CBC & Chem 7: 05/08/23 07:53 05/08/23 07:53 Labs: Abnormal Lab Results - Last 24 Hours (Table) 05/08/23 05/08/23 Range/Units 07:53 07:53 WBC 12.5 H (3.8-10.6) k/uL Neutrophils # 9.5 H (1.3-7.7) k/uL Sodium 133 L (137-145) mmol/L Potassium 3.3 L (3.5-5.1) mmol/L Chloride 91 L (98-107) mmol/L Glucose 154 H (74-99) mg/dL ALT 81 H (4-49) U/L
--- NOTE | 2023-05-08 22:21 | P.CONS ---
History of Present Illness - Reason for Consult Consult date: 05/08/23 knee infection Requesting physician: Elliot Aragon - Chief Complaint L knee pain and swelling x few days - History of Present Illness Patient is a 47-year-old male with a past medical history negative for hypertension hyperlipidemia osteoarthritis in this patient who is status post left knee arthroscopy completed on 05/02/2023 patient subsequently developing inc reasing pain swelling to the left knee area for the patient was evaluated at the [facility] [place] and the patient was subsequently transferred to [facility] for further evaluation patient was complaining of severe excruciating pain to the point that he has to use crutches for ambulation patient now presented to the hospital have low-grade fever 100.6 F patient did have elevated white count 12,000 with a left shift patient did have blood cultures drawn patient subsequently has been taken to the OR and the patient is s/p arthroscopic synovectomy no large and apparently there was some dark fluid and anticoagulants as per discussion with the surgeon patient was started on vancomycin pharmacy to dose infectious disease was consulted for further management of antibiotic therapy Review of Systems Positive point and negatives has been mentioned in the HPI, complete review of systems was performed and all other systems are negative Past Medical History Past Medical History: Hyperlipidemia, Hypertension History of Any Multi-Drug Resistant Organisms: None Reported Past Surgical History: Orthopedic Surgery Additional Past Surgical History / Comment(s): Right & L knee surgery. Past Anesthesia/Blood Transfusion Reactions: No Reported Reaction Past Psychological History: No Psychological Hx Reported Smoking Status: Never smoker Past Alcohol Use History: Occasional Past Drug Use History: None Reported - Past Family History Father Family Medical History: Cancer Medications and Allergies Home Medications Medication Instructions Recorded Confirmed Type Cetirizine HCl [Zyrtec] 10 mg PO QAM 01/18/22 05/08/23 History FLUoxetine HCL [PROzac] 60 mg PO QAM 01/18/22 05/08/23 History Omeprazole 20 mg PO QAM 01/18/22 05/08/23 History Simvastatin [Zocor] 80 mg PO QAM 01/18/22 05/08/23 History amLODIPine [Norvasc] 10 mg PO QAM 01/18/22 05/08/23 History atenoloL [Tenormin] 25 mg PO QAM 01/18/22 05/08/23 History buPROPion HCL [Wellbutrin SR] 150 mg PO QAM 01/18/22 05/08/23 History Naproxen Sodium [Naproxen Sodium 500 mg PO QAM 02/19/22 05/08/23 History ER] Cephalexin [Keflex] 500 mg PO Q6HR 14 Days #56 cap 05/13/23 Rx Sennosides/Docusate Sodium 1 each PO DAILY PRN #21 tab 05/13/23 Rx [Senna-S 8.6-50 mg Tablet] allopurinoL 200 mg PO DAILY #30 tab 05/13/23 Rx oxyCODONE-APAP 5-325MG [Percocet 1 tab PO Q6HR PRN 7 Days #28 tab 05/13/23 Rx 5-325 mg] Allergies Allergy/AdvReac Type Severity Reaction Status Date / Time No Known Allergies Allergy Verified 05/08/23 10:26 Physical Exam Vitals: Vital Signs Temp Pulse Pulse Resp BP BP Pulse Ox 05/08/23 11:03 97 F L 72 16 149/71 95 05/08/23 10:00 72 110/71 94 L 05/08/23 09:58 98.6 F 05/08/23 09:00 78 124/81 94 L 05/08/23 08:00 76 148/106 95 05/08/23 07:31 100.6 F H 77 18 148/106 97 Intake and Output 05/07/23 05/08/23 05/08/23 22:59 06:59 14:59 Intake Total 101.5 Balance 101.5 Intake: IV 101.5 Other: Weight 97.522 kg GENERAL DESCRIPTION: Middle-aged male lying in bed, no distress. No tachypnea or accessory muscle of respiration use. HEENT: Shows Pallor , no scleral icterus. Oral mucous membrane is dry. NECK: Trachea central, no thyromegaly. LUNGS: Unlabored breathing. Clear to auscultation anteriorly. No wheeze or crackle. HEART: S1, S2, regular rate and rhythm. ABDOMEN: Soft, no tenderness , guarding or rigidity EXTREMITIES: L knee is currently dressed in OR dressing. SKIN: No rash, no masses palpable. NEUROLOGICAL: The patient is awake, alert, oriented x3, mood and affect normal Results CBC & Chem 7: 05/12/23 08:31 07/02/23 08:31 Labs: Abnormal Lab Results - Last 24 Hours (Table) 05/08/23 05/08/23 Range/Units 07:53 07:53 WBC 12.5 H (3.8-10.6) k/uL Neutrophils # 9.5 H (1.3-7.7) k/uL Sodium 133 L (137-145) mmol/L Potassium 3.3 L (3.5-5.1) mmol/L Chloride 91 L (98-107) mmol/L Glucose 154 H (74-99) mg/dL ALT 81 H (4-49) U/L Assessment and Plan (1) Septic arthritis of knee, left Status: Acute Code(s): M00.9 - PYOGENIC ARTHRITIS, UNSPECIFIED SNOMED Code(s): 858635222 Plan: 1patient was in the hospital with sepsis in this patient did have fever elevated white count predominantly right knee pain concerning for right knee septic arthritis in this patient with a recent right knee arthroscopy likely from gram-positive skin rigoberto gram-negative infection less likely but not at excluded 2-vancomycin pharmacy to dose with a target trough of 15 while watching kidney function and Vanco trough closely. 3-we will add cefepime 2 g every 8 hours while waiting for the culture to finalize Discharge antibiotic on the basis of final culture We will follow on clinical condition and cultures to further adjust medication if needed Thank you for this consultation we will follow the patient along with you Time with Patient: Greater than 30
[2023-05-08] MEDS: CYCLOBENZAPRINE 5 MG TAB PO PRN (23:02)
[2023-05-09] MEDS: SODIUM CHLORIDE 0.9% 1,000 ML IV SCH ×2 (01:48→14:01)
[2023-05-09] MEDS: HYDROmorphone 0.5 MG/0.5 ML SYRINGE IVP PRN ×2 (02:10→10:03)
[2023-05-09] MEDS: VANCOMYCIN 1,500 MG in SODIUM CHLORIDE 0.9% 500 ML 500 ML IVPB SCH ×2 (05:48→16:48)
[2023-05-09] MEDS: PANTOPRAZOLE 40 MG TABLET PO SCH (06:35)
[2023-05-09] MEDS: CYCLOBENZAPRINE 5 MG TAB PO PRN ×2 (08:15→21:57)
[2023-05-09] MEDS: traMADol 50 MG TAB PO SCH ×3 (08:15→21:58)
[2023-05-09 08:49] LABS: Basophils # (A) 0.06 X 10*3/uL (0.00-0.10); Basophils % (A) 0.6 %; Eosinophils # (A) 0.04 X 10*3/uL (0.04-0.35); Eosinophils % (A) 0.4 %; HCT 39.7 % (39.6-50.0); HGB 13.5 d/dL (12.0-15.0); Lymphocytes # (A) 1.68 X 10*3/uL (0.90-5.00); Lymphocytes % (A) 16.7 %; MCV 85.4 FL (80.0-97.0); Monocytes # (A) 0.87 X 10*3/uL (0.20-1.00); Monocytes % (A) 8.7 %; NRBC Per 100 WBC 0 X 10*3/uL (0.00-0.01); Neutrophils # (A) 7.34 X 10*3/uL (1.80-7.70); Neutrophils % (A) 73.2 %; Platelet Count 299 X 10*3/uL (140-440); RBC 4.65 X 10*6/uL (4.40-5.60); RDW 12.5 % (11.5-14.5); WBC 10.03 X 10*3/uL (4.50-10.00)
[2023-05-09 09:09] LABS: ALT 62 U/L (10-49); AST 29 U/L (14-35); Albumin 3.7 d/dL (3.8-4.9); Albumin/Globulin Ratio 1.23 Ratio (1.60-3.17); Alkaline Phosphatase 66 U/L (41-126); BUN/Creat Ratio 13.78 Ratio (12.00-20.00); Blood Urea Nitrogen 12.4 mg/dL (9.0-27.0); Calcium 9.1 mg/dL (8.7-10.3); Carbon Dioxide 29.7 mmol/L (21.6-31.8); Chloride 93 mmol/L (96-109); Glucose 123 mg/dL (70-110); Potassium 3.3 mmol/L (3.5-5.5); Sodium 136 mmol/L (135-145); Total Bilirubin 0.9 mg/dL (0.3-1.2); Total Protein 6.7 d/dL (6.2-8.2)
[2023-05-09] MEDS: ATORVASTATIN 40 MG TAB PO SCH (10:36)
[2023-05-09] MEDS: amLODIPine 10 MG TAB PO SCH (10:36)
[2023-05-09] MEDS: atenoloL 25 MG TAB PO SCH (10:36)
[2023-05-09] MEDS: buPROPion SR 150 MG TABLET.ER PO SCH (10:36)
[2023-05-09] MEDS: LORATADINE 10 MG TAB PO SCH (10:36)
[2023-05-09] MEDS: FLUoxetine HCL 20 MG CAP PO SCH (10:36)
[2023-05-09] MEDS: oxyCODONE-APAP 5-325MG 1 EACH TAB PO PRN ×3 (10:51→23:40)
[2023-05-09] MEDS ORDERED: POTASSIUM CHLORIDE ER 20 MEQ TAB.ER PO STA (11:07)
--- NOTE | 2023-05-09 11:09 | P.PN ---
Subjective Progress Note Date: 05/09/23 Subjective: Patient seen and examined at bedside. No acute events overnight. Continues to have significant left knee pain. Denies any other new complaints. Pertinent positives and negatives as discussed above, a complete review of systems was performed and all other systems are negative. Vitals Signs Reviewed. General: nontoxic, no distress, appears at stated age Derm: warm, dry, dressing clean, dry, intact Head: atraumatic, [ormocephalic] [ymmetric]Eyes: [HERIBERTO] [o lid lag] [nicteric sclera]Mouth: [o lip lesion] [ucus membranes moist]Cardiovascular: [1S2 reg] [o murmur]Lungs: [TA bilateral] [o rhonchi, no rales], [o accessory muscle use]Abdominal: [oft] [nontender to palpation] [o guarding] [o appreciable organomegaly]Ext: [o gross muscle atrophy] [o edema] [o contractures]Neuro: [CN II-XI grossly intact] [o focal neuro deficits]Psych: [lert] [riented] [ppropriate affect] Data Reviewed Today: Pertinent Labs: WBC 10.03, potassium 3.3, creatinine 0.9, CRP 18.4, cultures still pending Imaging: No new imaging today Assessment and Plan: [ctive:]Septic arthritis status post partial synovectomy Osteoarthritis, recent TKA Hypokalemia Hypertension Dyslipidemia Depression/anxiety GERD -OR cultures pending -Continue IV vancomycin, and IV cefepime monitor for renal toxicity -Patient has significant pain, not able to tolerate oral [place], switch to oral Percocet 5 every 6 hours as needed -Also on IV Dilaudid as needed, oral tramadol and Flexeril as needed -20 mEq oral potassium given, repeat BMP and magnesium tomorrow -Other home medications reconciled Thank you for allowing us to participate in the care of this pleasant patient. Do not hesitate to contact us with questions. Someone can be reached from the [facility] hospitalist group all hours of the day at [phone] or via perfect serve. Objective - Vital Signs Vital signs: Vital Signs Temp 98.5 F 05/09/23 08:00 Pulse 94 05/09/23 08:00 Resp 20 05/09/23 08:00 BP 144/84 05/09/23 08:00 Pulse Ox 94 L 05/09/23 10:04 FiO2 Intake & Output 05/08/23 05/09/23 05/09/23 18:59 06:59 18:59 Intake Total 801.5 Output Total 510 400 550 Balance 291.5 -400 -550 Weight 97.522 kg Intake: IV 801.5 Output: Urine 500 400 550 Estimated Blood Loss 10 Other: Voiding Method Urinal - Labs CBC & Chem 7: 05/09/23 05:44 05/09/23 05:44 Labs: Abnormal Lab Results - Last 24 Hours (Table) 05/09/23 05/09/23 Range/Units 05:44 05:44 WBC 10.03 H (4.50-10.00) X 10*3/uL Potassium 3.3 L (3.5-5.5) mmol/L Chloride 93 L (96-109) mmol/L Anion Gap 13.30 H (4.00-12.00) mmol/L Glucose 123 H (70-110) mg/dL ALT 62 H (10-49) U/L C-Reactive Protein 18.40 H (0.00-0.80) mg/dL Albumin 3.7 L (3.8-4.9) d/dL Albumin/Globulin Ratio 1.23 L (1.60-3.17) Ratio
[2023-05-09 11:23] VITALS: BMI 27.6
--- NOTE | 2023-05-09 11:24 | P.PN ---
Subjective Progress Note Date: 05/09/23 Principal diagnosis: Status post left knee arthroscopy with lavage and partial synovectomy, left knee septic arthritis, history of recent left knee arthroscopy with partial medial meniscectomy Patient was examined today at bedside, he is resting in his hospital bed. he continues to have discomfort with regards to the left knee. The bandage remains in good position and condition. He denies any fevers or chills at this time. He has been followed by internal medicine at this time. Currently denies headaches, lightheadedness, chest pain or shortness of breath. Objective - Vital Signs Vital signs: Vital Signs Temp 98.5 F 05/09/23 08:00 Pulse 94 05/09/23 08:00 Resp 20 05/09/23 08:00 BP 144/84 05/09/23 08:00 Pulse Ox 94 L 05/09/23 10:04 FiO2 Intake & Output 05/08/23 05/09/23 05/09/23 18:59 06:59 18:59 Intake Total 801.5 Output Total 510 400 550 Balance 291.5 -400 -550 Weight 97.522 kg Intake: IV 801.5 Output: Urine 500 400 550 Estimated Blood Loss 10 Other: Voiding Method Urinal - Exam Left lower extremity: Postoperative bandages in good position and condition, no active drainage is visualized. Passive and active range of motion are intact flexion and extension, pain seems improved compared to yesterday. Plantar flexion, dorsiflexion, EHL, FHL are intact. Calf is soft, no tenderness with palpation. Sensory exam to light touch is intact throughout the extremity, dorsalis pedis pulses 2+ - Labs CBC & Chem 7: 05/09/23 05:44 05/09/23 05:44 Labs: Abnormal Lab Results - Last 24 Hours (Table) 05/09/23 05/09/23 Range/Units 05:44 05:44 WBC 10.03 H (4.50-10.00) X 10*3/uL Potassium 3.3 L (3.5-5.5) mmol/L Chloride 93 L (96-109) mmol/L Anion Gap 13.30 H (4.00-12.00) mmol/L Glucose 123 H (70-110) mg/dL ALT 62 H (10-49) U/L C-Reactive Protein 18.40 H (0.00-0.80) mg/dL Albumin 3.7 L (3.8-4.9) d/dL Albumin/Globulin Ratio 1.23 L (1.60-3.17) Ratio Assessment and Plan Assessment: Postoperative day #1 status postleft knee arthroscopy with arthroscopic lavage and partial synovectomy Left knee septic arthritis History of recent left knee arthroscopy w Plan: Pain control, internal medicine did change her on oral medications. Discussed the patient try to avoid IV Dilaudid DVT prophylaxis, subcu medication is fine during inpatient stay Discussed with patient he will be in the hospital for the next 4872 hours waiting final culture and sensitivities. Patient will likely need PICC line placement for outpatient IV antibiotic treatment Continue IV antibiotics at this time Wound care instructions, we will change bandages at bedside tomorrow Weight-bear as tolerated Ice and elevate often Other medical technologist clinical recommendations appreciated We'll continue to follow during inpatient stay Time with Patient: Less than 30
[2023-05-09] MEDS: CEFEPIME 2 GM in SODIUM CHLORIDE 0.9% 100 ML IVPB SCH ×3 (11:35→23:41)
[2023-05-09 12:07] LABS: Erythrocyte Sedimentation Rate 89 mm/Hr (0-15)
--- NOTE | 2023-05-09 20:38 | P.PN ---
Subjective Progress Note Date: 05/09/23 Principal diagnosis: L knee septic arthritis Patient is a 47-year-old male who recently did have left knee arthroscopy subsequently presented to the hospital with increasing pain swelling to the left knee area has been diagnosed with septic arthritis status post left knee washout and culture. On today's evaluation that is 05/09/2023, the patient denies having any fever or any chills, patient pain to the left knee is currently controlled with pain medication. Denies any chest pain shortness of breath or cough no abdominal pain or diarrhea Objective - Vital Signs Vital signs: Vital Signs Temp 98.5 F 05/09/23 08:00 Pulse 94 05/09/23 08:00 Resp 20 05/09/23 08:00 BP 144/84 05/09/23 08:00 Pulse Ox 94 L 05/09/23 10:04 FiO2 Intake & Output 05/08/23 05/09/23 05/09/23 18:59 06:59 18:59 Intake Total 801.5 Output Total 510 400 550 Balance 291.5 -400 -550 Weight 97.522 kg 97.522 kg Intake: IV 801.5 Output: Urine 500 400 550 Estimated Blood Loss 10 Other: Voiding Method Urinal - Exam GENERAL DESCRIPTION: Middle-age male lying in bed in no distress RESPIRATORY SYSTEM: Unlabored breathing , decreased breath sounds at bases HEART: S1 S2 regular rate and rhythm ,no loud murmurs ABDOMEN: Soft , no tenderness EXTREMITIES: Left knee is currently dressed no drainage on the dressing - Labs CBC & Chem 7: 05/09/23 05:44 05/09/23 05:44 Labs: Abnormal Lab Results - Last 24 Hours (Table) 05/09/23 05/09/23 Range/Units 05:44 05:44 WBC 10.03 H (4.50-10.00) X 10*3/uL ESR 89 H (0-15) mm/Hr Potassium 3.3 L (3.5-5.5) mmol/L Chloride 93 L (96-109) mmol/L Anion Gap 13.30 H (4.00-12.00) mmol/L Glucose 123 H (70-110) mg/dL ALT 62 H (10-49) U/L C-Reactive Protein 18.40 H (0.00-0.80) mg/dL Albumin 3.7 L (3.8-4.9) d/dL Albumin/Globulin Ratio 1.23 L (1.60-3.17) Ratio Assessment and Plan (1) Septic arthritis of knee, left Current Visit: Yes Status: Acute Code(s): M00.9 - PYOGENIC ARTHRITIS, UNSPECIFIED SNOMED Code(s): 477577266 Plan: 1patient was in the hospital with sepsis in this patient did have fever elevated white count predominantly right knee pain concerning for right knee septic arthritis in this patient with a recent right knee arthroscopy likely from gram-positive skin rigoberto gram-negative infection less likely but not at excluded 2- cefepime and vancomycin pharmacy to dose with a target trough of 15 while watching kidney function and Vanco trough closely. 3-Discharge antibiotic on the basis of final culture Time with Patient: Less than 30
[2023-05-10] MEDS: VANCOMYCIN 1,500 MG in SODIUM CHLORIDE 0.9% 500 ML 500 ML IVPB SCH ×3 (05:37→23:09)
[2023-05-10] MEDS: oxyCODONE-APAP 5-325MG 1 EACH TAB PO PRN ×3 (05:45→18:10)
[2023-05-10] MEDS: PANTOPRAZOLE 40 MG TABLET PO SCH (05:45)
[2023-05-10] MEDS: SODIUM CHLORIDE 0.9% 1,000 ML IV SCH ×2 (07:22→20:50)
[2023-05-10] MEDS: amLODIPine 10 MG TAB PO SCH (08:05)
[2023-05-10] MEDS: SENNOSIDES-DOCUSATE SODIUM 1 EACH TAB PO SCH (08:05)
[2023-05-10] MEDS: ATORVASTATIN 40 MG TAB PO SCH (08:05)
[2023-05-10] MEDS: LORATADINE 10 MG TAB PO SCH (08:05)
[2023-05-10] MEDS: traMADol 50 MG TAB PO SCH ×3 (08:05→23:09)
[2023-05-10] MEDS: atenoloL 25 MG TAB PO SCH (08:07)
[2023-05-10] MEDS: ENOXAPARIN 40 MG/0.4 ML SYRINGE SQ SCH (08:08)
[2023-05-10] MEDS: FLUoxetine HCL 20 MG CAP PO SCH (08:08)
[2023-05-10] MEDS: buPROPion SR 150 MG TABLET.ER PO SCH (08:08)
[2023-05-10 08:53] LABS: BUN/Creat Ratio 15.33 Ratio (12.00-20.00); Blood Urea Nitrogen 13.8 mg/dL (9.0-27.0); Calcium 8.9 mg/dL (8.7-10.3); Carbon Dioxide 28.3 mmol/L (21.6-31.8); Chloride 95 mmol/L (96-109); Glucose 127 mg/dL (70-110); Magnesium 2.4 mg/dL (1.5-2.4); Potassium 3.1 mmol/L (3.5-5.5); Sodium 136 mmol/L (135-145)
[2023-05-10] MEDS: CEFEPIME 2 GM in SODIUM CHLORIDE 0.9% 100 ML IVPB SCH ×2 (09:46→19:32)
[2023-05-10] MEDS: CYCLOBENZAPRINE 5 MG TAB PO PRN (09:53)
--- NOTE | 2023-05-10 11:09 | P.PN ---
Subjective Progress Note Date: 05/10/23 Principal diagnosis: Left knee septic arthritis Patient was seen at bedside this morning lying semirecumbent position with compression stocking and ABD dressings present over left knee. Patient says his pain is controlled with pain medication. Patient says he has urinated several times since surgery. Patient is wondering when he will be able to go home. At this time cultures are still pending. Patient is almost 48 hours postop from left knee arthroscopy for septic knee. Patient denies any other changes at this time. Patient denies chest pain, fever, shortness breath, nausea, vomiting, change in vision, loss of bowel/bladder control. Objective - Vital Signs Vital signs: Vital Signs Temp 98.5 F 05/10/23 07:32 Pulse 80 05/10/23 07:32 Resp 18 05/10/23 07:32 BP 155/83 05/10/23 07:32 Pulse Ox 92 L 05/10/23 08:33 FiO2 21 05/10/23 08:33 Intake & Output 05/09/23 05/10/23 05/10/23 18:59 06:59 18:59 Output Total 550 600 Balance -550 -600 Weight 97.522 kg Output: Urine 550 600 Other: Voiding Method Toilet Urinal # Voids 3 - Exam Left knee: Incision is clean, dry, and intact. The compression stocking and Phillip bandages/Steri-Strips is in good condition. Sutures are in good place. N egative for any active drainage from incisions. There is minimal soft tissue swelling and ecchymosis surrounding the medial and lateral aspects of the incision. Calf is soft, no tenderness with palpation. Plantar flexion, dorsiflexion, EHL, FHL are intact. Sensory exam to light touch throughout the extremity is intact, dorsal pedis pulses 2+. - Labs CBC & Chem 7: 05/09/23 05:44 05/10/23 05:38 Labs: Abnormal Lab Results - Last 24 Hours (Table) 05/09/23 05/10/23 Range/Units 05:44 05:38 ESR 89 H (0-15) mm/Hr Potassium 3.1 L (3.5-5.5) mmol/L Chloride 95 L (96-109) mmol/L Anion Gap 12.70 H (4.00-12.00) mmol/L Glucose 127 H (70-110) mg/dL Microbiology - Last 24 Hours (Table) 05/08/23 11:50 Wound Culture - Preliminary Knee - Left 05/08/23 11:50 Wound Culture - Preliminary Knee - Left 05/08/23 10:55 Blood Culture - Preliminary Blood 05/08/23 10:40 Blood Culture - Preliminary Blood Assessment and Plan Assessment: Left knee septic arthritis Postoperative day 2 status post Arthroscopic partial synovectomy medial, lateral and suprapatellar compartments left knee Plan: Left knee septic arthritis - patient stable at bedside this morning. Surgery performed 05/08/2023 - arthroscopy left knee for septic arthritis. Patient is about 48 hours postop. Cultures are still pending at this time. I did speak with Dr. Mora about plan of antibiotic treatment. Per Dr. Mora interventional radiology is not available in hospital this week. We have consulted Dr. Ramos for PICC line placement. We'll await for cultures to finalize and PICC line placement before patient can be discharged home on antibiotics. Continue pain medication as needed. Weightbearing as tolerated with walker as necessary. Continue cefepime and vancomycin at this time as cultures finalize. We'll continue to follow patient during his stay in hospital. 2. Appreciate medical and ID management; awaiting PICC line placement 3. Pain management - Percocet; tramadol; Flexeril 4. DVT prophylaxis - Lovenox 5. GI prophylaxis - senna 6. PT/OT - weightbearing as tolerated with walker as needed 7. Discharge planning - We'll await for cultures to finalize and PICC line placement before patient can be discharged home on antibiotics. Time with Patient: Less than 30
[2023-05-10] MEDS ORDERED: POTASSIUM CHLORIDE ER 20 MEQ TAB.ER PO STA (11:44)
--- NOTE | 2023-05-10 12:21 | P.PN ---
Subjective Progress Note Date: 05/10/23 Subjective: Patient seen and examined at bedside. No acute events overnight. Has reduced left knee pain. Denies any other complaints. Pertinent positives and negatives as discussed above, a complete review of systems was performed and all other systems are negative. Vitals Signs Reviewed. General: nontoxic, no distress, appears at stated age Derm: warm, dry, left knee dressing clean, dry, Head: atraumatic, normocephalic, symmetric Eyes: EOMI, no lid lag, anicteric sclera Mouth: no lip lesion, mucus membranes moist Cardiovascular: S1S2 reg, no murmur Lungs: CTA bilateral, no rhonchi, no rales , no accessory muscle use Abdominal: soft, nontender to palpation, no guarding, no appreciable organomegaly Ext: no gross muscle atrophy, no edema, no contractures Neuro: CN II-XI grossly intact, no focal neuro deficits Psych: Alert, oriented, appropriate affec Data Reviewed Today: Pertinent Labs: Sodium 136, potassium 3.1, creatinine 0.9 magnesium 2.4 Cultures pending Assessment and Plan: Septic arthritis status post partial synovectomy Osteoarthritis, recent TKA Hypokalemia Hypertension Dyslipidemia Depression/anxiety GERD -OR cultures pending -Continue IV vancomycin, and IV cefepime monitor for renal toxicity -On oral Percocet as needed -Also on IV Dilaudid as needed, oral tramadol and Flexeril as needed -40 mEq oral potassium given, repeat BMP and magnesium tomorrow -Patient will likely need IV antibiotics at discharge, vascular surgery consulted for PICC line -Rest of the home medications have been resumed Thank you for allowing us to participate in the care of this pleasant patient. Do not hesitate to contact us with questions. Someone can be reached from the [facility] hospitalist group all hours of the day at [phone] or via perfect serve. Objective - Vital Signs Vital signs: Vital Signs Temp 98.5 F 05/10/23 07:32 Pulse 80 05/10/23 07:32 Resp 18 05/10/23 07:32 BP 155/83 05/10/23 07:32 Pulse Ox 92 L 05/10/23 08:33 FiO2 21 05/10/23 08:33 Intake & Output 05/09/23 05/10/23 05/10/23 18:59 06:59 18:59 Output Total 550 600 Balance -550 -600 Weight 97.522 kg Output: Urine 550 600 Other: Voiding Method Toilet Urinal # Voids 3 - Labs CBC & Chem 7: 05/09/23 05:44 05/10/23 05:38 Labs: Abnormal Lab Results - Last 24 Hours (Table) 05/10/23 Range/Units 05:38 Potassium 3.1 L (3.5-5.5) mmol/L Chloride 95 L (96-109) mmol/L Anion Gap 12.70 H (4.00-12.00) mmol/L Glucose 127 H (70-110) mg/dL Microbiology - Last 24 Hours (Table) 05/08/23 11:50 Gram Stain - Preliminary Knee - Left Wound Culture - Preliminary 05/08/23 11:50 Wound Culture - Preliminary Knee - Left 05/08/23 10:55 Blood Culture - Preliminary Blood 05/08/23 10:40 Blood Culture - Preliminary Blood
[2023-05-10] MEDS ORDERED: VANCOMYCIN TROUGH DUE 1 EACH MISC MISCELLANE ONE (15:00)
--- NOTE | 2023-05-10 22:30 | P.PN ---
Subjective Progress Note Date: 05/10/23 Principal diagnosis: L knee septic arthritis Patient is a 47-year-old male who recently did have left knee arthroscopy subsequently presented to the hospital with increasing pain swelling to the left knee area has been diagnosed with septic arthritis status post left knee washout and culture. On today's evaluation that is 05/10/2023, the patient denies having any fever or any chills, the patient pain the left is currently controlled patient denies having any chest pain shortness of breath or cough no nausea vomiting no abdominal pain and no diarrhea Objective - Vital Signs Vital signs: Vital Signs Temp 98.5 F 05/10/23 07:32 Pulse 80 05/10/23 07:32 Resp 18 05/10/23 07:32 BP 155/83 05/10/23 07:32 Pulse Ox 92 L 05/10/23 08:33 FiO2 21 05/10/23 08:33 Intake & Output 05/09/23 05/10/23 05/10/23 18:59 06:59 18:59 Output Total 550 600 Balance -550 -600 Weight 97.522 kg Output: Urine 550 600 Other: Voiding Method Toilet Urinal # Voids 3 - Exam GENERAL DESCRIPTION: Middle-age male lying in bed in no distress RESPIRATORY SYSTEM: Unlabored breathing , decreased breath sounds at bases HEART: S1 S2 regular rate and rhythm ,no loud murmurs ABDOMEN: Soft , no tenderness EXTREMITIES: Left knee is currently dressed no drainage on the dressing - Labs CBC & Chem 7: 05/09/23 05:44 05/10/23 05:38 Labs: Abnormal Lab Results - Last 24 Hours (Table) 05/10/23 Range/Units 05:38 Potassium 3.1 L (3.5-5.5) mmol/L Chloride 95 L (96-109) mmol/L Anion Gap 12.70 H (4.00-12.00) mmol/L Glucose 127 H (70-110) mg/dL Microbiology - Last 24 Hours (Table) 05/08/23 11:50 Gram Stain - Preliminary Knee - Left Wound Culture - Preliminary 05/08/23 11:50 Gram Stain - Preliminary Knee - Left Wound Culture - Preliminary 05/08/23 10:55 Blood Culture - Preliminary Blood 05/08/23 10:40 Blood Culture - Preliminary Blood Assessment and Plan (1) Septic arthritis of knee, left Current Visit: Yes Status: Acute Code(s): M00.9 - PYOGENIC ARTHRITIS, UNS PECIFIED SNOMED Code(s): 050372217 Plan: 1patient was in the hospital with sepsis in this patient did have fever elevated white count predominantly right knee pain concerning for right knee septic arthritis in this patient with a recent right knee arthroscopy likely from gram-positive skin rigoberto gram-negative infection less likely but not at excluded 2-Patient cultures are currently pending we will continue the patient cefepime and vancomycin with the discharge antibiotics on the basis of final culture he will need a PICC line for outpatient IV antibiotic therapy hopefully can be placed on Saturday as no IR is available today, oral antibiotics not a good choice for septic arthritis Time with Patient: Less than 30
[2023-05-11] MEDS: CEFEPIME 2 GM in SODIUM CHLORIDE 0.9% 100 ML IVPB SCH ×3 (02:24→22:35)
[2023-05-11] MEDS: oxyCODONE-APAP 5-325MG 1 EACH TAB PO PRN ×3 (02:28→18:47)
[2023-05-11] MEDS: SODIUM CHLORIDE 0.9% 1,000 ML IV SCH ×2 (03:30→19:23)
[2023-05-11 06:18] LABS: African American GFR (CKD) >90 (>60 ml/min/1.73 sqM); Anion Gap 6 mmol/L; Blood Urea Nitrogen 15 mg/dL (9-20); Calcium 8.4 mg/dL (8.4-10.2); Carbon Dioxide 32 mmol/L (22-30); Chloride 99 mmol/L (98-107); Glucose 106 mg/dL (74-99); Magnesium 2.3 mg/dL (1.6-2.3); Non-African American GFR(CKD) >90 (>60 ml/min/1.73 sqM); Potassium 3.4 mmol/L (3.5-5.1); Sodium 137 mmol/L (137-145)
[2023-05-11] MEDS: PANTOPRAZOLE 40 MG TABLET PO SCH (06:21)
--- NOTE | 2023-05-11 08:22 | P.PN ---
Subjective Progress Note Date: 05/11/23 Principal diagnosis: Left knee septic arthritis Patient was seen at bedside this morning lying semirecumbent position with compression stocking and ABD dressings present over left knee. Patient says his pain is controlled with pain medication. Patient says he has urinated several times since surgery. Patient is wondering when he will be able to go home. At this time cultures are still pending. Patient denies any other changes at this time. Patient denies chest pain, fever, shortness breath, nausea, vomiting, change in vision, loss of bowel/bladder control. Objective - Vital Signs Vital signs: Vital Signs Temp 97.6 F 05/11/23 01:08 Pulse 100 05/11/23 01:08 Resp 18 05/11/23 01:08 BP 149/89 05/11/23 01:08 Pulse Ox 96 05/11/23 01:08 FiO2 21 05/10/23 08:33 Intake & Output 05/10/23 05/11/23 05/11/23 18:59 06:59 18:59 Other: # Voids 4 1 - Exam Left knee: Incision is clean, dry, and intact. The compression stocking and Phillip bandages/Steri-Strips is in good condition. Sutures are in good place. Negative for any active drainage from incisions. There is minimal soft tissue swelling and ecchymosis surrounding the medial and lateral aspects of the incision. Calf is soft, no tenderness with palpation. Plantar flexion, dorsiflexion, EHL, FHL are intact. Sensory exam to light touch throughout the extremity is intact, dorsal pedis pulses 2+. - Labs CBC & Chem 7: 05/09/23 05:44 05/11/23 05:32 Labs: Abnormal Lab Results - Last 24 Hours (Table) 05/10/23 05/11/23 Range/Units 05:38 05:32 Potassium 3.1 L 3.4 L (3.5-5.5) mmol/L Chloride 95 L (96-109) mmol/L Carbon Dioxide 32 H (22-30) mmol/L Anion Gap 12.70 H (4.00-12.00) mmol/L Glucose 127 H 106 H (70-110) mg/dL Microbiology - Last 24 Hours (Table) 05/08/23 11:50 Anaerobic Culture - Preliminary Knee - Left 05/08/23 11:50 Anaerobic Culture - Preliminary Knee - Left 05/08/23 10:55 Blood Culture - Preliminary Blood 05/08/23 10:40 Blood Culture - Preliminary Blood 05/08/23 11:50 Gram Stain - Preliminary Knee - Left Wound Culture - Preliminary 05/08/23 11:50 Gram Stain - Preliminary Knee - Left Wound Culture - Preliminary Assessment and Plan Assessment: Left knee septic arthritis Postoperative day 3 status post Arthroscopic partial synovectomy medial, lateral and suprapatellar compartments left knee Plan: Left knee septic arthritis - patient stable at bedside this morning. Surgery performed 05/08/2023 - arthroscopy left knee for septic arthritis. Patient is 48-72 hours postop. Cultures are still pending at this time. I did speak with Dr. Mora about plan of antibiotic treatment. Per Dr. Mora interventional radiology is not available in hospital this week. Vascular was unavailable yesterday, Saturday, so patient was able to have PICC line placed. Plan for PICC line placement via interventional radiology or vascular on Saturday. We'll await for cultures to finalize and PICC line placement before patient can be discharged home on antibiotics. Continue pain medication as needed. Weightbearing as tolerated with walker as necessary. Continue cefepime and vancomycin at this time as cultures finalize. We'll continue to follow patient during his stay in hospital. 2. Appreciate medical and ID management and vascular/IR management ->awaiting PICC line placement 3. Pain management - Percocet; tramadol; Flexeril 4. DVT prophylaxis - Lovenox 5. GI prophylaxis - senna 6. PT/OT - weightbearing as tolerated with walker as needed 7. Discharge planning - We'll await for cultures to finalize and PICC line placement before patient can be discharged home on antibiotics. Time with Patient: Less than 30
[2023-05-11] MEDS ORDERED: POTASSIUM CHLORIDE ER 20 MEQ TAB.ER PO STA (08:35)
[2023-05-11] MEDS: ATORVASTATIN 40 MG TAB PO SCH (09:06)
[2023-05-11] MEDS: FLUoxetine HCL 20 MG CAP PO SCH (09:06)
[2023-05-11] MEDS: traMADol 50 MG TAB PO SCH ×3 (09:06→22:35)
[2023-05-11] MEDS: atenoloL 25 MG TAB PO SCH (09:07)
[2023-05-11] MEDS: VANCOMYCIN 1,500 MG in SODIUM CHLORIDE 0.9% 500 ML 500 ML IVPB SCH (09:07)
[2023-05-11] MEDS: CYCLOBENZAPRINE 5 MG TAB PO PRN ×2 (09:07→16:39)
[2023-05-11] MEDS: SENNOSIDES-DOCUSATE SODIUM 1 EACH TAB PO SCH (09:07)
[2023-05-11] MEDS: amLODIPine 10 MG TAB PO SCH (09:07)
[2023-05-11] MEDS: LORATADINE 10 MG TAB PO SCH (09:07)
[2023-05-11] MEDS: buPROPion SR 150 MG TABLET.ER PO SCH (09:07)
[2023-05-11] MEDS: ENOXAPARIN 40 MG/0.4 ML SYRINGE SQ SCH (09:08)
--- NOTE | 2023-05-11 15:25 | P.PN ---
Subjective Progress Note Date: 05/11/23 Patient is a 47-year-old male who recently did have left knee arthroscopy subsequently presented to the hospital with increasing pain swelling to the left knee area has been diagnosed with septic arthritis status post left knee washout and culture. Patient seen and examined at bedside. is present. He is upset that he is still here and awaiting PICC line. He denies any nausea, vomiting, or diarrhea. He is asking for a shower today. Vital signs reviewed General: nontoxic, no distress, appears at stated age Cardiovascular: S1S2 reg, no murmur, positive posterior tibial pulse bilateral, Lungs: CTA bilateral, no rhonchi, no rales , no accessory muscle use Abdominal: soft, nontender to palpation, no guarding, no appreciable organomegaly Ext: no gross muscle atrophy, no edema b/l lower extremities, no contractures, dressing in place over left knee Neuro: CN II-XI grossly intact, no focal neuro deficits Psych: Alert, oriented, appropriate affect Assessment/Plan: Septic arthritis the left knee Osteoarthritis status post recent left knee arthroscopy - awaitic ultres, negative X 48 hours - nursing to check weight for more accurate vanco dosing as trough from yesterday 8.7 - follow Cr and vanco trough for moitoring - coniotnue with vanco and cefepime 2 grams q 8 hours IVPB D# 3 - awaiting picc line Hypokalemia - repleace and recheck in AM with magnesium HLD HTN - atenolol 25 mg daily, Lipitor 40 mg daily -Follow blood pressures Obesity -Structured outpatient weight loss Imaging: None new Data Review: Vitals reviewed and temperature 90.8, pulse 88, respirations 18, blood pressure 151/94, O2 sat 96% on room air Labs reviewed potassium 3.4, carbon dioxide 32, BUN 15, creatinine 0.9 to No growth on wound her blood cultures for 48 hours DVT prophylaxis: Lovenox Thank you for allowing us to participate in the care of this pleasant patient. Do not hesitate to contact us with questions. Someone can be reached from the [facility] hospitalist group all hours of the day at [phone] or via perfect serve. This dictation was prepared using [employer] voice recognition software. Though every attempt is made to correct errors during dictation some may still exist. Objective - Vital Signs Vital signs: Vital Signs Temp 98.1 F 05/11/23 14:00 Pulse 81 05/11/23 14:00 Resp 18 05/11/23 14:00 BP 133/62 05/11/23 14:00 Pulse Ox 99 05/11/23 14:00 FiO2 21 05/10/23 08:33 Intake & Output 05/10/23 05/11/23 05/11/23 18:59 06:59 18:59 Other: Voiding Method Toilet Urinal # Voids 4 1 - Labs CBC & Chem 7: 05/09/23 05:44 05/11/23 05:32 Labs: Abnormal Lab Results - Last 24 Hours (Table) 05/11/23 Range/Units 05:32 Potassium 3.4 L (3.5-5.1) mmol/L Carbon Dioxide 32 H (22-30) mmol/L Glucose 106 H (74-99) mg/dL Microbiology - Last 24 Hours (Table) 05/08/23 11:50 Anaerobic Culture - Preliminary Knee - Left 05/08/23 11:50 Anaerobic Culture - Preliminary Knee - Left 05/08/23 10:55 Blood Culture - Preliminary Blood 05/08/23 10:40 Blood Culture - Preliminary Blood 05/08/23 11:50 Gram Stain - Preliminary Knee - Left Wound Culture - Preliminary 05/08/23 11:50 Gram Stain - Preliminary Knee - Left Wound Culture - Preliminary
--- NOTE | 2023-05-11 15:25 | P.PN ---
Subjective Progress Note Date: 05/11/23 Principal diagnosis: L knee septic arthritis Patient is a 47-year-old male who recently did have left knee arthroscopy subsequently presented to the hospital with increasing pain swelling to the left knee area has been diagnosed with septic arthritis status post left knee washout and culture. On today's evaluation that is 05/11/2023, the patient remains to be febrile, the patient pain to left is controlled with the current medication patient mentioned he is requiring less pain medication, patient denies having any chest pain shortness of breath or cough no nausea vomiting no abdominal pain and no diarrhea Objective - Vital Signs Vital signs: Vital Signs Temp 98.0 F 05/11/23 08:00 Pulse 88 05/11/23 08:00 Resp 18 05/11/23 08:00 BP 151/94 05/11/23 08:00 Pulse Ox 96 05/11/23 08:00 FiO2 21 05/10/23 08:33 Intake & Output 05/10/23 05/11/23 05/11/23 18:59 06:59 18:59 Other: # Voids 4 1 - Exam GENERAL DESCRIPTION: Middle-age male lying in bed in no distress RESPIRATORY SYSTEM: Unlabored breathing , decreased breath sounds at bases HEART: S1 S2 regular rate and rhythm ,no loud murmurs ABDOMEN: Soft , no tenderness EXTREMITIES: Left knee did have minimal swelling no significant redness or drainage - Labs CBC & Chem 7: 05/09/23 05:44 05/11/23 05:32 Labs: Abnormal Lab Results - Last 24 Hours (Table) 05/11/23 Range/Units 05:32 Potassium 3.4 L (3.5-5.1) mmol/L Carbon Dioxide 32 H (22-30) mmol/L Glucose 106 H (74-99) mg/dL Microbiology - Last 24 Hours (Table) 05/08/23 11:50 Anaerobic Culture - Preliminary Knee - Left 05/08/23 11:50 Anaerobic Culture - Preliminary Knee - Left 05/08/23 10:55 Blood Culture - Preliminary Blood 05/08/23 10:40 Blood Culture - Preliminary Blood 05/08/23 11:50 Gram Stain - Preliminary Knee - Left Wound Culture - Preliminary 05/08/23 11:50 Gram Stain - Preliminary Knee - Left Wound Culture - Preliminary Assessment and Plan (1) Septic arthritis of knee, left Current Visit: Yes Status: Acute Code(s): M00.9 - PYOGENIC ARTHRITIS, UNSPECIFIED SNOMED Code(s): 875655867 Plan: 1patient was in the hospital with sepsis in this patient did have fever elev ated white count predominantly right knee pain concerning for right knee septic arthritis in this patient with a recent right knee arthroscopy likely from gram- positive skin rigoberto gram-negative infection less likely but not at excluded 2-Patient cultures are currently pending , patient to continue the patient cefepime and vancomycin with the discharge antibiotics on the basis of final culture , patient will benefit from IV antibiotics that will require [facility] authorization, however if the cultures remains to be negative and the patient insisting on going home oral Keflex Maybe an option but not recomended and this was explained to the patient in layman terms Time with Patient: Less than 30
[2023-05-11] MEDS: VANCOMYCIN 1,750 MG in SODIUM CHLORIDE 0.9% 500 ML 500 ML IVPB SCH (18:49)
[2023-05-12] MEDS: VANCOMYCIN 1,750 MG in SODIUM CHLORIDE 0.9% 500 ML 500 ML IVPB SCH (02:04)
[2023-05-12] MEDS: oxyCODONE-APAP 5-325MG 1 EACH TAB PO PRN ×3 (02:08→20:08)
[2023-05-12] MEDS: PANTOPRAZOLE 40 MG TABLET PO SCH (06:12)
[2023-05-12] MEDS: CEFEPIME 2 GM in SODIUM CHLORIDE 0.9% 100 ML IVPB SCH ×2 (06:12→15:25)
[2023-05-12] MEDS: SODIUM CHLORIDE 0.9% 1,000 ML IV SCH ×2 (06:17→21:36)
[2023-05-12 08:53] LABS: HCT 36.2 % (39.0-53.0); HGB 12.3 gm/dL (13.0-17.5); MCH 29.2 pg (25.0-35.0); MCV 85.8 fL (80.0-100.0); Mean Platelet Volume 7.9; Platelet Count 320 k/uL (150-450); Poikilocytosis Slight; RBC 4.22 m/uL (4.30-5.90)
[2023-05-12] MEDS ORDERED: VANCOMYCIN TROUGH DUE 1 EACH MISC MISCELLANE ONE (09:00)
[2023-05-12 09:05] LABS: African American GFR (CKD) >90 (>60 ml/min/1.73 sqM); Anion Gap 7 mmol/L; Blood Urea Nitrogen 13 mg/dL (9-20); Calcium 8.2 mg/dL (8.4-10.2); Carbon Dioxide 32 mmol/L (22-30); Chloride 100 mmol/L (98-107); Glucose 110 mg/dL (74-99); Magnesium 2.3 mg/dL (1.6-2.3); Non-African American GFR(CKD) >90 (>60 ml/min/1.73 sqM); Potassium 3.6 mmol/L (3.5-5.1); Sodium 139 mmol/L (137-145)
--- NOTE | 2023-05-12 09:55 | P.PN ---
Subjective Progress Note Date: 05/12/23 Principal diagnosis: Left knee septic arthritis Patient was seen at bedside this morning lying semirecumbent position with Phillip wrap present over left knee as well as compression stocking. Patient says he did get up yesterday and walked around the room with his and did take a shower. Patient says he has been able to put some weight on the left lower extremity. 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 At this time cultures are still pending. Patient denies any other changes at this time. Patient denies chest pain, fever, shortness breath, nausea, vomiting, change in vision, loss of bowel/bladder control. Objective - Vital Signs Vital signs: Vital Signs Temp 98.3 F 05/12/23 07:12 Pulse 71 05/12/23 07:12 Resp 18 05/12/23 07:12 BP 129/78 05/12/23 07:12 Pulse Ox 97 05/12/23 08:34 FiO2 21 05/10/23 08:33 Intake & Output 05/11/23 05/12/23 05/12/23 18:59 06:59 18:59 Output Total 750 Balance -750 Weight 144.2 kg Output: Urine 750 Other: Voiding Method Toilet Urinal # Voids 3 2 - Exam Left knee: Incision is clean, dry, and intact. The compression stocking and Phillip bandages/Steri-Strips is in good condition. Sutures are in good place. Negative for any active drainage from incisions. There is minimal soft tissue swelling and ecchymosis surrounding the medial and lateral aspects of the incision. Calf is soft, no tenderness with palpation. Plantar flexion, dorsiflexion, EHL, FHL are intact. Sensory exam to light touch throughout the extremity is intact, dorsal pedis pulses 2+. - Labs CBC & Chem 7: 05/12/23 08:31 05/12/23 08:31 Labs: Abnormal Lab Results - Last 24 Hours (Table) 05/12/23 05/12/23 Range/Units 08:31 08:31 RBC 4.22 L (4.30-5.90) m/uL Hgb 12.3 L (13.0-17.5) gm/dL Hct 36.2 L (39.0-53.0) % Carbon Dioxide 32 H (22-30) mmol/L Glucose 110 H (74-99) mg/dL Calcium 8.2 L (8.4-10.2) mg/dL Microbiology - Last 24 Hours (Table) 05/08/23 10:55 Blood Culture - Preliminary Blood 05/08/23 10:40 Blood Culture - Preliminary Blood Assessment and Plan Assessment: Left knee septic arthritis Postoperative day 4 status post Arthroscopic partial synovectomy medial, lateral and suprapatellar compartments left knee Plan: Left knee septic arthritis - patient stable at bedside this morning. Surgery performed 05/08/2023 - arthroscopy left knee for septic arthritis. Patient is >72 hours postop. Cultures are still pending at this time. I did speak with Dr. Mora about plan of antibiotic treatment. Per Dr. Mora interventional radiology is not available in hospital this week. Vascular was unavailable Saturday, so patient was not able to have PICC line placed. Plan for PICC line placement via interventional radiology or vascular on Saturday. We'll await for cultures to finalize and PICC line placement before patient can be discharged home on antibiotics. Continue pain medication as needed. Weightbearing as tolerated with walker as necessary. Continue cefepime and vancomycin at this time as cultures finalize. We'll continue to follow patient during his stay in hospital. 2. Appreciate medical and ID management and vascular/IR management ->awaiting PICC line placement 3. Pain management - Percocet; tramadol; Flexeril 4. DVT prophylaxis - Lovenox 5. GI prophylaxis - senna 6. PT/OT - weightbearing as tolerated with walker as needed 7. Discharge planning - We'll await for cultures to finalize and PICC line placement before patient can be discharged home on antibiotics. Time with Patient: Less than 30
[2023-05-12] MEDS ORDERED: VANCOMYCIN 1,750 MG in SODIUM CHLORIDE 0.9% 500 ML 500 ML IVPB SCH (10:00)
[2023-05-12] MEDS: CYCLOBENZAPRINE 5 MG TAB PO PRN ×3 (10:14→21:32)
[2023-05-12] MEDS: traMADol 50 MG TAB PO SCH ×3 (10:14→21:32)
[2023-05-12] MEDS: FLUoxetine HCL 20 MG CAP PO SCH (10:15)
[2023-05-12] MEDS: buPROPion SR 150 MG TABLET.ER PO SCH (10:15)
[2023-05-12] MEDS: SENNOSIDES-DOCUSATE SODIUM 1 EACH TAB PO SCH (10:15)
[2023-05-12] MEDS: amLODIPine 10 MG TAB PO SCH (10:15)
[2023-05-12] MEDS: atenoloL 25 MG TAB PO SCH (10:15)
[2023-05-12] MEDS: ATORVASTATIN 40 MG TAB PO SCH (10:16)
[2023-05-12] MEDS: ENOXAPARIN 40 MG/0.4 ML SYRINGE SQ SCH (10:16)
[2023-05-12] MEDS: LORATADINE 10 MG TAB PO SCH (10:16)
--- NOTE | 2023-05-12 15:01 | P.PN ---
Subjective Progress Note Date: 05/12/23 (delayed charting seen at 0910) Patient is a 47-year-old male who recently did have left knee arthroscopy subsequently presented to the hospital with increasing pain swelling to the left knee area has been diagnosed with septic arthritis status post left knee washout and culture. Patient seen and examined at bedside. He has no complaints, pain controlled, no nausea, no vomiting, no diarrhea. Vital signs reviewed General: nontoxic, no distress, appears at stated age Cardiovascular: S1S2 reg, no murmur, positive posterior tibial pulse bilateral, Lungs: CTA bilateral, no rhonchi, no rales , no accessory muscle use Abdominal: soft, nontender to palpation, no guarding, no appreciable organomegaly Ext: no gross muscle atrophy, no edema b/l lower extremities, no contractures, dressing in place over left knee Neuro: CN II-XI grossly intact, no focal neuro deficits Psych: Alert, oriented, appropriate affect Assessment/Plan: Septic arthritis the left knee Osteoarthritis status post recent left knee arthroscopy - called isiah mejia for update on knee cultures: last update was from 05/10 and negative for 48 hours. should have final results this evening - will need PICC line in AM and then auth from [facility] for ABX, D/W rafael ANDRE from [facility] that [facility] auth can take awhile - await cultures - follow Cr and vanco trough for monitoring - continue with vanco and cefepime 2 grams q 8 hours IVPB D# 4 - awaiting picc line - await further ID recs HLD HTN - atenolol 25 mg daily, Lipitor 40 mg daily -Follow blood pressures Obesity -Structured outpatient weight loss Hypokalemia, resolved Imaging: None new Data Review: Vitals reviewed temp 98.3, pulse 71, respirations 18, blood pressure 129/78, O2 sat 96% on room air Labs reviewed hemoglobin 12.3, glucose 110, Vanco trough 18.8 DVT prophylaxis: Lovenox Thank you for allowing us to participate in the care of this pleasant patient. Do not hesitate to contact us with questions. Someone can be reached from the [facility] hospitalist group all hours of the day at [phone] or via perfect serve. This dictation was prepared using [employer] voice recognition software. Tho ugh every attempt is made to correct errors during dictation some may still exist. Objective - Vital Signs Vital signs: Vital Signs Temp 98.3 F 05/12/23 07:12 Pulse 71 05/12/23 07:12 Resp 18 05/12/23 07:12 BP 129/78 05/12/23 07:12 Pulse Ox 97 05/12/23 08:34 FiO2 21 05/10/23 08:33 Intake & Output 05/11/23 05/12/23 05/12/23 18:59 06:59 18:59 Output Total 750 Balance -750 Weight 144.2 kg Output: Urine 750 Other: Voiding Method Toilet Toilet Urinal Urinal # Voids 3 2 - Labs CBC & Chem 7: 05/12/23 08:31 05/12/23 08:31 Labs: Abnormal Lab Results - Last 24 Hours (Table) 05/12/23 05/12/23 Range/Units 08:31 08:31 RBC 4.22 L (4.30-5.90) m/uL Hgb 12.3 L (13.0-17.5) gm/dL Hct 36.2 L (39.0-53.0) % Carbon Dioxide 32 H (22-30) mmol/L Glucose 110 H (74-99) mg/dL Calcium 8.2 L (8.4-10.2) mg/dL Microbiology - Last 24 Hours (Table) 05/08/23 10:55 Blood Culture - Preliminary Blood 05/08/23 10:40 Blood Culture - Preliminary Blood
--- NOTE | 2023-05-12 17:29 | P.PN ---
Subjective Progress Note Date: 05/12/23 Principal diagnosis: L knee septic arthritis Patient is a 47-year-old male who recently did have left knee arthroscopy subsequently presented to the hospital with increasing pain swelling to the left knee area has been diagnosed with septic arthritis status post left knee washout and culture. On today's evaluation that is 05/12/2023, the patient continues to be febrile, the patient pain to left knee has decreased in intensity the patient has more mobility, patient denies having any chest pain shortness of breath or cough no nausea vomiting no abdominal pain and no diarrhea Objective - Vital Signs Vital signs: Vital Signs Temp 98.0 F 05/12/23 14:08 Pulse 84 05/12/23 14:08 Resp 19 05/12/23 14:08 BP 107/64 05/12/23 14:08 Pulse Ox 99 05/12/23 14:08 FiO2 21 05/10/23 08:33 Intake & Output 05/11/23 05/12/23 05/12/23 18:59 06:59 18:59 Output Total 750 Balance -750 Weight 144.2 kg Output: Urine 750 Other: Voiding Method Toilet Toilet Urinal Urinal # Voids 3 2 - Exam GENERAL DESCRIPTION: Middle-age male lying in bed in no distress RESPIRATORY SYSTEM: Unlabored breathing , decreased breath sounds at bases HEART: S1 S2 regular rate and rhythm ,no loud murmurs ABDOMEN: Soft , no tenderness EXTREMITIES: Left knee currently dressed not drainage on the dressing - Labs CBC & Chem 7: 05/12/23 08:31 05/12/23 08:31 Labs: Abnormal Lab Results - Last 24 Hours (Table) 05/12/23 05/12/23 Range/Units 08:31 08:31 RBC 4.22 L (4.30-5.90) m/uL Hgb 12.3 L (13.0-17.5) gm/dL Hct 36.2 L (39.0-53.0) % Carbon Dioxide 32 H (22-30) mmol/L Glucose 110 H (74-99) mg/dL Calcium 8.2 L (8.4-10.2) mg/dL Microbiology - Last 24 Hours (Table) 05/08/23 10:55 Blood Culture - Preliminary Blood 05/08/23 10:40 Blood Culture - Preliminary Blood Assessment and Plan (1) Septic arthritis of knee, left Current Visit: Yes Status: Acute Code(s): M00.9 - PYOGENIC ARTHRITIS, UNSPECIFIED SNOMED Code(s): 137378096 Plan: 1patient was in the hospital with sepsis in this patient did have fever elevated white count predominantly right knee pain concerning for right knee septic arthritis in this patient with a recent right knee arthroscopy likely from gram-positive skin rigoberto gram-negative infection less likely but not at excluded 2-Patient cultures of the left knee that were drawn before starting the patient on antibiotic has been negative, patient did have a fever and elevated white c ount elevated sed rate and CRP point it was possible inflammatory process, unfortunately no cell count or crystals were done, as it could be related to gouty arthritis patient noticed to having increasing pain and swelling to the left first metatarsal joint area we will go ahead and check uric acid level repeat a CRP and a sed rate and colchicine we will discontinue vancomycin and cefepime and start the patient on Rocephin, a short course of IV Rocephin on discharge will be safe however keeping in mind long May 14 holiday may not be able to get authorization from the ID tomorrow and the patient is insisting on going home, often for oral Keflex and closer patient follow-up has been discussed with the patient and ortho PA on the phone who will discussed it with attending Time with Patient: Less than 30
[2023-05-12] MEDS: COLCHICINE 0.6 MG EACH PO SCH (21:32)
[2023-05-13] MEDS: PANTOPRAZOLE 40 MG TABLET PO SCH (06:26)
[2023-05-13] MEDS: oxyCODONE-APAP 5-325MG 1 EACH TAB PO PRN (06:26)
[2023-05-13 09:07] LABS: C Reactive Protein 6.3 mg/dL (0.00-0.80); Uric Acid 5.2 mg/dL (3.7-8.7)
--- NOTE | 2023-05-13 09:10 | P.PN ---
Subjective Progress Note Date: 05/13/23 Principal diagnosis: Status post left knee arthroscopy with lavage and partial synovectomy, left knee septic arthritis, history of recent left knee arthroscopy with partial medial meniscectomy Patient was examined today at bedside, he is resting comfortably. Patient states that the overall pain to the knee is improved. Throughout the weekend, there was concern for possible gouty involving the knee and also the toe. He was placed oncology seen on 05/12/2023. Patient hasn't much of an improvement in his overall symptoms medication. The cultures have no acute pathology. We've discussed multiple options outpatient treatment with both internal medicine and infectious disease. Currently patient denies headaches, lightheadedness, chest pain or shortness of breath. Objective - Vital Signs Vital signs: Vital Signs Temp 99.4 F 05/13/23 00:35 Pulse 81 05/13/23 00:35 Resp 16 05/13/23 00:35 BP 120/66 05/13/23 00:35 Pulse Ox 96 05/13/23 00:35 FiO2 21 05/10/23 08:33 Intake & Output 05/12/23 05/13/23 05/13/23 18:59 06:59 18:59 Other: Voiding Method Toilet Toilet Urinal Urinal # Voids 3 2 # Bowel Movements 1 - Exam Left lower extremity: Postoperative bandages in good position and condition, no active drainage is visualized. Active flexion and extension of the knee so improve with less pain reproduced. Plantar flexion, dorsiflexion, EHL, FHL are intact. Calf is soft, no tenderness with palpation. Sensory exam to light touch is intact throughout the extremity, dorsalis pedis pulses 2+ Mild erythema noted at the first MTP joint on the left foot, there is palpation along with discomfort with flexion and extension of that joint. - Labs CBC & Chem 7: 05/12/23 08:31 05/12/23 08:31 Labs: Abnormal Lab Results - Last 24 Hours (Table) 05/12/23 Range/Units 08:31 Carbon Dioxide 32 H (22-30) mmol/L Glucose 110 H (74-99) mg/dL Calcium 8.2 L (8.4-10.2) mg/dL Microbiology - Last 24 Hours (Table) 05/08/23 11:50 Anaerobic Culture - Final Knee - Left 05/08/23 11:50 Anaerobic Culture - Final Knee - Left 05/08/23 11:50 Gram Stain - Final Knee - Left Wound Culture - Final 05/08/23 11:50 Gram Stain - Final Knee - Left Wound Culture - Final Assessment and Plan Assessment: Postoperative day #5 status postleft knee arthroscopy with arthroscopic lavage and partial synovectomy Left knee septic arthritis versus inflammatory arthritis left knee Possible gouty arthritis left great toe History of recent left knee arthroscopy w Plan: We had a long discussion today with the internal medicine group and also was able to review infectious disease recommendations. ESR and CRP labs were again drawn this morning, we also awaiting and uric acid levels. Cultures revealed no growth of bacteria. Infectious disease current recommendations course of oral antibiotics versus midline placement and shorter course of IV antibiotics. Discussing with photographic laboratory technician to check for availability of a nurse to place midline, also awaiting a case management recommendations for [facility] coverage. Pain control, patient is weaned off the IV pain medication. He continues to utilize Percocet every 6 hours as needed DVT prophylaxis, continue subcutaneous medication during hospital stay Continue IV antibiotics at this time Wound care instructions discussed, this including icing and elevating on showering Weight-bear as tolerated Ice and elevate often Other medical billing instructor recommendations appreciated Further recommendations to follow hopeful discharged home today Time with Patient: Less than 30
[2023-05-13 09:15] VITALS: RESP 18
[2023-05-13] MEDS: SENNOSIDES-DOCUSATE SODIUM 1 EACH TAB PO SCH (10:21)
[2023-05-13] MEDS: ENOXAPARIN 40 MG/0.4 ML SYRINGE SQ SCH (10:21)
[2023-05-13] MEDS: atenoloL 25 MG TAB PO SCH (10:21)
[2023-05-13] MEDS: amLODIPine 10 MG TAB PO SCH (10:22)
[2023-05-13] MEDS: LORATADINE 10 MG TAB PO SCH (10:22)
[2023-05-13] MEDS: ATORVASTATIN 40 MG TAB PO SCH (10:22)
[2023-05-13] MEDS: buPROPion SR 150 MG TABLET.ER PO SCH (10:22)
[2023-05-13] MEDS: traMADol 50 MG TAB PO SCH (10:22)
[2023-05-13] MEDS: FLUoxetine HCL 20 MG CAP PO SCH (10:22)
[2023-05-13] MEDS: COLCHICINE 0.6 MG EACH PO SCH (10:23)
[2023-05-13] MEDS: CYCLOBENZAPRINE 5 MG TAB PO PRN (10:23)
--- NOTE | 2023-05-13 12:09 | P.DS ---
Providers Date of admission: 05/08/23 10:34 Expected date of discharge: 05/13/23 Attending physician: Samson Otero Consults: 05/08/23 10:28 Consult Physician Routine Consulting Provider: Andrés Madrigal Consult Reason/Comments: Medical management Do you want consulting provider notified?: Already Contacted Consult Physician Urgent Consulting Provider: Donis Mora Consult Reason/Comments: Knee infection Do you want consulting provider notified?: Yes Primary care physician: [facility] Hospital Course: Date of admission: 05/08/2023 Date of discharge: 05/13/2023 Admission diagnosis: Left knee septic arthritis Discharge diagnosis: Left knee septic arthritis versus left knee inflammatory arthritis Attending physician: Dr. Otero Surgical procedures: Left knee arthroscopic lavage with partial synovectomy Brief history: Patient is a 47-year-old male who had undergone a arthroscopic knee procedure by Dr. Otero on 05/02/2023. Patient [facility] to [facility] on 05/08/2023 due to severe pain, difficulty with ambulation, fever and chills. Patient's labs demonstrated a severely elevated white count, CRP and sed rate. There is a very high concern for septic arthropathy of the left knee, patient was taken that day 2 the operating room for a arthroscopic lavage procedure on the left knee. Hospital course: Details of patient's surgery can be found in operative report. Patient tolerated the procedure well and was subsequently transported to orthopedic floor. Patient's orthopeidc and medical care was provided daily. Patient had daily laboratory tests performed for evaluation of overall blood counts. Patient had daily physical therapy to include strengthening range of motion as well as education with walker ambulation. Patient was treated with Lovenox for their postoperative DVT prophylaxis during their inpatient stay. Patient was noted to have a relatively uneventful postoperative course. Culture/sensitivities revealed no acute bacteria. Patient's ESR and CRP did trend down during hospital stay. Patient did develop gouty-like symptoms to the left big toe. He did receive a few doses of colchicene during his hospital stay. Patient reported satisfactory pain control with oral pain medications by postoperative day 1. Patient showed satisfactory progress with physical therapy. Patient moved steadily through the program and had no difficulty meeting the goals by postoperative day 5. Given patient's otherwise satisfactory course and having met physical therapy goals, plan is to discharge patient home on postoperative day 5. Discharge condition/disposition: Patient will be discharged home in stable condition. we did question the possibility of a midline burst PICC line versus oral antibiotics after discussion with both internal medicine and infectious disease. Taking into consideration the patient's overall clinical picture along with insurance authorization for a IV placement, it was determined the patient could be discharged home on oral antibiotics for 14 days. Patient will also be prescribed with allopurinol 200 mg, he will also follow-up with his primary care regarding further gouty arthropathy workup and management. Patient will have further labs drawn later this week to monitor his CRP and sed rate. Patient is scheduled to follow up with orthopedics on 05/17/2023. Discharge medications: Instructions are given on resumption of patient's normal daily medications per primary care recommendation, in addition patient will be prescribed Percocet 5 mg/325 mg, Keflex 500 mg, Senokot-S, allopurinol 200 mg. Discharge instructions: 1. Wound care and infection precautions, keep incision dry and covered while showering no lotions, creams, moisturizers. No soaking, tubs, pools, hottubs. Do not scrub over the incision. 2. Weight-bear as tolerated with walker / cane until follow-up. 3. Ice and elevate when necessary. Do not exceed 20 minutes per hour with ice pack. 7. Pain meds and anticoagulants per prescription. 8. Pain medication has potential to cause constipation. Increase oral fluid and fiber intake. Contact primary care provider if you have not had a bowel movement within 48 hours after discharge 9. No anti-inflammatory medication until discussed at first post operative visit, this including Motrin, Aleve, Mobic, Diclofenac 10. Follow up in office at 2 weeks postop with Ish Palm PA-C/Brent Su 11. Follow up with your primary care doctor 7-10 days after discharge. 12. Contact [facility] with any questions, . Procedures: Left knee arthroscopic lavage with partial synovectomy Plan - Discharge Summary Discharge Rx Participant: Yes New Discharge Prescriptions: New oxyCODONE-APAP 5-325MG [Percocet 5-325 mg] 1 tab PO Q6HR PRN 7 Days #28 tab PRN Reason: Pain Cephalexin [Keflex] 500 mg PO Q6HR 14 Days #56 cap allopurinoL 200 mg PO DAILY #30 tab Sennosides/Docusate Sodium [Senna-S 8.6-50 mg Tablet] 1 each PO DAILY PRN #21 tab PRN Reason: Constipation Continue buPROPion HCL [Wellbutrin SR] 150 mg PO QAM FLUoxetine HCL [PROzac] 60 mg PO QAM Cetirizine HCl [Zyrtec] 10 mg PO QAM atenoloL [Tenormin] 25 mg PO QAM Omeprazole 20 mg PO QAM amLODIPine [Norvasc] 10 mg PO QAM Simvastatin [Zocor] 80 mg PO QAM Discontinued HYDROcodone/APAP 5-325MG [[place] 5-325] 1 tab PO Q6HR PRN #12 tab PRN Reason: Pain No Action Naproxen Sodium [Naproxen Sodium ER] 500 mg PO QAM Discharge Medication List Cetirizine HCl [Zyrtec] 10 mg PO QAM 01/18/22 [History] FLUoxetine HCL [PROzac] 60 mg PO QAM 01/18/22 [History] Omeprazole 20 mg PO QAM 01/18/22 [History] Simvastatin [Zocor] 80 mg PO QAM 01/18/22 [History] amLODIPine [Norvasc] 10 mg PO QAM 01/18/22 [History] atenoloL [Tenormin] 25 mg PO QAM 01/18/22 [History] buPROPion HCL [Wellbutrin SR] 150 mg PO QAM 01/18/22 [History] Naproxen Sodium [Naproxen Sodium ER] 500 mg PO QAM 02/19/22 [History] Cephalexin [Keflex] 500 mg PO Q6HR 14 Days #56 cap 05/13/23 [Rx] Sennosides/Docusate Sodium [Senna-S 8.6-50 mg Tablet] 1 each PO DAILY PRN #21 tab 05/13/23 [Rx] allopurinoL 200 mg PO DAILY #30 tab 05/13/23 [Rx] oxyCODONE-APAP 5-325MG [Percocet 5-325 mg] 1 tab PO Q6HR PRN 7 Days #28 tab 05/13/23 [Rx] Follow up Appointment(s)/Referral(s): Gerardo Palm PAC [PHYSICIAN ADMINIST[employer]IVE [employer] JUSTICE] - 2 Weeks Donis Mora MD [STAFF PHYSICIAN] - 2 Weeks [facility] [Primary Care Provider] - 1-2 days Ambulatory/Diagnostic Orders: C Reactive Protein [LAB.AMB] Time Frame: 05/17/23, Location: None Selected Erythrocyte Sedimentation Rate [LAB.AMB] Time Frame: 05/17/23, Location: None Selected Activity/Diet/Wound Care/Special Instructions: Orthopedic discharge instructions: 1. Resume home medications 2. Pain medication as needed 3. Ice and elevate often 4. Okay to shower directly over the incisions, no soaking, this including hot tubs or pools 5. Weight-bear as tolerated, walker/crutches as needed 6. Have labs drawn prior to appointment 7. Plan for follow-up at [facility] on 05/17/2023 8. If symptoms worsen, this to include fevers/chills, redness, swelling, pain and stiffness to report to Bessy Lee on hospital Discharge Disposition: HOME SELF-CARE
--- NOTE | 2023-05-13 14:14 | P.PN ---
Subjective Progress Note Date: 05/13/23 (delayed charting seen at 0945) Patient is a 47-year-old male who recently did have left knee arthroscopy subsequently presented to the hospital with increasing pain swelling to the left knee area has been diagnosed with septic arthritis status post left knee washout and culture. Patient seen and examined at bedside. He has no complaints, wants to go home. No nausea, vomiting, diarrhea. Vital signs reviewed General: nontoxic, no distress, appears at stated age Cardiovascular: S1S2 reg, no murmur, positive posterior tibial pulse bilateral, Lungs: CTA bilateral, no rhonchi, no rales , no accessory muscle use Abdominal: soft, nontender to palpation, no guarding, no appreciable organomegaly Ext: no gross muscle atrophy, no contractures, dressing in place over left knee Neuro: CN II-XI grossly intact, no focal neuro deficits Psych: Alert, oriented, appropriate affect Assessment/Plan: Septic arthritis the left knee, possibly gouty arthritis Osteoarthritis status post recent left knee arthroscopy - Knee cultures are negative -Case discussed in detail with the [facility] orthopedic PA and Dr. Mora. Options were also discussed with the patient. Unfortunately aren't unable to obtain authorization for IV antibiotics today. Though the best possible regimen for the patient would be IV Rocephin in light of the patient not wanting to be hospitalized further the alternative regimen will be Keflex 500 mg 4 times daily for the next 2 weeks with close monitoring of ESR and CRP. Discussed with the patient and in detail that this is a higher likelihood of failure than IV antibiotics would and they are accepting of this plan. They are aware that they need to return to the hospital should he develop fevers, worsening erythema, or wound dehiscence. They're aware of the importance of following up with Dr. Les luna and Dr. Otero to ensure that this infection does not worsen. They're aware that he should have ESR and CRP this coming Saturday and orders were given. - Completed 5 days of IV abx HLD HTN - atenolol 25 mg daily, Lipitor 40 mg daily -Follow blood pressures Obesity BMI 36.7 -Structured outpatient weight loss -Medication discharge reconciliation addressed. Hypokalemia, resolved Imaging: None new Data Review: Vitals temperature 98.5, pulse 88, respirations 18, blood pressure 145/79, O2 sat 93% on room air Labs reviewed ESR 43, CRP 6.3 (down from 18), uric acid 5.2 DVT prophylaxis: Lovenox Thank you for allowing us to participate in the care of this pleasant patient. Do not hesitate to contact us with questions. Someone can be reached from the [facility][Note 3] hospitalist group all hours of the day at [phone] or via perfect serve. This dictation was prepared using [employer] voice recognition software. Though every attempt is made to correct errors during dictation some may still exist. Objective - Vital Signs Vital signs: Vital Signs Temp 98.5 F 05/13/23 07:38 Pulse 88 05/13/23 07:38 Resp 18 05/13/23 07:38 BP 145/79 05/13/23 07:38 Pulse Ox 93 L 05/13/23 10:00 FiO2 21 05/10/23 08:33 Intake & Output 05/12/23 05/13/23 05/13/23 18:59 06:59 18:59 Other: Voiding Method Toilet Toilet Toilet Urinal Urinal Urinal # Voids 3 2 2 # Bowel Movements 1 - Labs CBC & Chem 7: 05/12/23 08:31 05/12/23 08:31 Labs: Abnormal Lab Results - Last 24 Hours (Table) 05/13/23 05/13/23 Range/Units 05:44 05:44 ESR 43 H (0-15) mm/Hr C-Reactive Protein 6.30 H (0.00-0.80) mg/dL Microbiology - Last 24 Hours (Table) 05/08/23 11:50 Anaerobic Culture - Final Knee - Left 05/08/23 11:50 Anaerobic Culture - Final Knee - Left 05/08/23 11:50 Gram Stain - Final Knee - Left Wound Culture - Final 05/08/23 11:50 Gram Stain - Final Knee - Left Wound Culture - Final
[2023-05-13 15:10] VITALS: BP 129/84; PULSE 75; TEMP 98.7
--- NOTE | 2023-05-16 00:36 | CDI ---
Documentation Clarification Form Date: 05/15/2023 01:19:18 PM From: Sunshine Cabrales Admit Date: 05/08/2023 10:34:00 AM Patient Name: Darryl Spears Visit Number: [id number] Discharge Date: 05/13/2023 03:02:00 PM ATTENTION: The Clinical Documentation Specialists (CDI) and [facility] Coding Staff appreciate your assistance in clarifying documentation. Please respond to the clarification below the line at the bottom and electronically sign. The CDI & [facility] Coding staff will review the response and follow-up if needed. Please note: Queries are made part of the Legal Health Record. If you have any questions, please contact the author of this message via ITS. Dr. Samson Otero Septic arthritis is documented throughout the chart and patient is noted to have undergone an arthroscopic knee procedure, by you, on 05/02/2023. Please clarify if there is a relationship between the current septic arthritis and the May 02, 2023 arthroscopic left knee procedure. History/Risk Factors: difficulty with ambulation, fever and chills. recent arthroscopic knee surgery Clinical Indicators: Treatment: Partial synovection medial, lateral and suprpatellar compartments and lavage of left knee. Please clarify the relationship, if any, which is clinically appropriate for this patient: [ ] Septic arthritis is due to 05/02/2023 arthroscopic surgery [ ] Septic arthritis is not due to 05/02/2023 arthroscopic surgery [ ] Other explanation of clinical findings (please specify) [ x ] Unable to determine (no explanation for clinical findings) MTDD
--- NOTE | 2023-05-18 19:53 | P.PN ---
Subjective Progress Note Date: 05/13/23 Principal diagnosis: L knee septic arthritis Patient is a 47-year-old male who recently did have left knee arthroscopy subsequently presented to the hospital with increasing pain swelling to the left knee area has been diagnosed with septic arthritis status post left knee washout and culture. On today's evaluation that is 05/13/2023, the patient is febrile, the patient pain to left knee has decreased in intensity the patient has more mobility, patient denies having any chest pain shortness of breath or cough no nausea vomiting no abdominal pain and no diarrhea, feeling better and wants to go home Objective - Vital Signs Vital signs: Vital Signs Temp 98.5 F 05/13/23 07:38 Pulse 88 05/13/23 07:38 Resp 18 05/13/23 07:38 BP 145/79 05/13/23 07:38 Pulse Ox 93 L 05/13/23 10:00 FiO2 21 05/10/23 08:33 Intake & Output 05/12/23 05/13/23 05/13/23 18:59 06:59 18:59 Other: Voiding Method Toilet Toilet Urinal Urinal # Voids 3 2 # Bowel Movements 1 - Exam GENERAL DESCRIPTION: Middle-age male lying in bed in no distress RESPIRATORY SYSTEM: Unlabored breathing , decreased breath sounds at bases HEART: S1 S2 regular rate and rhythm ,no loud murmurs ABDOMEN: Soft , no tenderness EXTREMITIES: Left knee currently dressed not drainage on the dressing - Labs CBC & Chem 7: 05/12/23 08:31 05/12/23 08:31 Labs: Abnormal Lab Results - Last 24 Hours (Table) 05/13/23 05/13/23 Range/Units 05:44 05:44 ESR 43 H (0-15) mm/Hr C-Reactive Protein 6.30 H (0.00-0.80) mg/dL Microbiology - Last 24 Hours (Table) 05/08/23 11:50 Anaerobic Culture - Final Knee - Left 05/08/23 11:50 Anaerobic Culture - Final Knee - Left 05/08/23 11:50 Gram Stain - Final Knee - Left Wound Culture - Final 05/08/23 11:50 Gram Stain - Final Knee - Left Wound Culture - Final Assessment and Plan (1) Septic arthritis of knee, left Status: Acute Code(s): M00.9 - PYOGENIC ARTHRITIS, UNSPECIFIED SNOMED Code(s): 321852652 Plan: 1patient was in the hospital with sepsis in this patient did have fever elevated white count predominantly right knee pain concerning for right knee septic arthritis in this patient with a recent right knee arthroscopy likely from gram-positive skin rigoberto gram-negative infection less likely but not at excluded 2-Patient cultures of the left knee that were drawn before starting the patient on antibiotic has been negative, patient did have a fever and elevated white count elevated sed rate and CRP point it was possible inflammatory process, unfortunately no cell count or crystals were done, as it could be related to gouty arthritis patient noticed to having increasing pain and swelling to the left first metatarsal joint area we will go ahead and check uric acid level repeat a CRP and a sed rate , Pt is currently on Rocephin, a short course of IV Rocephin on discharge will be safe however keeping in mind long May 14 holiday may not be able to get authorization from the [facility] today per case kimberly and patient is insisting on going home, plan is for oral keflex x 2 weeks and close outpatient follow up , discussed with ortho HOSPICE TEAM LEAD at bedside Time with Patient: Less than 30
== END 2023-05-13 15:02 | disposition home or self-care (01) | DRG 854 ==
LOC: EC 07:30 → 4SSUR 10:34
PROVIDERS: ADMIT Orthopaedic Surgery; ATTEND Orthopaedic Surgery
PROC: 0SBD4ZZ Excision of Left Knee Joint, Percutaneous Endoscopic Approach (ICD-10-PCS; principal; 2023-05-08 18:05)
DX: A41.9 Sepsis, unspecified organism (principal); E87.1 Hypo-osmolality and hyponatremia; M00.9 Pyogenic arthritis, unspecified; K21.9 Gastro-esophageal reflux disease without esophagitis; Z20.822 Contact with and (suspected) exposure to COVID-19; E66.9 Obesity, unspecified; E78.5 Hyperlipidemia, unspecified; E87.6 Hypokalemia; F32.A Depression, unspecified; F41.9 Anxiety disorder, unspecified; I10 Essential (primary) hypertension; M10.9 Gout, unspecified; M17.12 Unilateral primary osteoarthritis, left knee; Z68.36 Body mass index [BMI] 36.0-36.9, adult; Z79.899 Other long term (current) drug therapy
CPT/HCPCS: 36415; 71046; 80048; 80053; 80202; 81003; 83735; 84550; 85025; 85027; 85652; 86140; 87040; 87070; 87075; 87205; 87636; 94760; 96374; 99285

== ENCOUNTER → 2024-08-31 | Outpatient (CLI) | payer OTHER ==
--- NOTE | 2024-09-01 08:50 | MR ---
EXAMINATION TYPE: MR tspine/lspine wo con DATE OF EXAM: 08/31/2024 COMPARISON: Lumbosacral spine radiograph 01/06/2014 HISTORY: Mid/low back pain TECHNIQUE: Multiplanar, multisequence imaging of the thoracolumbar spine is performed without IV cont rast. FINDINGS: The thoracic vertebral bodies have preserved heights and alignment. The osseous structure have normal signal intensity. Thoracic spinal cord appears unremarkable. Tiny central disc protrusion at T7-T8 w ithout effacement of the anterior thecal sac. Intervertebral discs demonstrate normal signal intensi ty. The lumbar vertebral bodies do have preserved heights and alignment. Lower lumbar spine disc desicca tion is present. Type I Modic changes involving the endplates around the L4-L5 disc. The conus medull sissy and the distal spinal cord do appear unremarkable with regards to their signal intensity and mor phology. L1-L2: No significant disc pathology is identified. The spinal canal and neural foramen are patent. L2-L3: No significant disc pathology is identified. The spinal canal and neural foramen are patent. L3-L4: Broad-based disc bulge with annular fissure. There is mild narrowing of the anterior thecal s ac. Enlargement of the bilateral facet joints. Minimal narrowing of the bilateral neural foramen infe riorly. L4-L5: Central disc protrusion superimposed upon a broad-based disc bulge with mild effacement of the anterior thecal sac. Bilateral facet joints are enlarged. Mild bilateral neural foraminal narrowing. L5-S1: Central disc protrusion with mild effacement of the anterior thecal sac. There is abutment of the exiting right nerve root at this level. Moderate right and mild left neural foraminal stenosis. Other significant findings: None. IMPRESSION: Multilevel disc degeneration with associated osteoarthritic changes. Most pronounced involving the lo wer lumbar spine. Central disc protrusions at T7-T8, L4-L5, and L5-S1. The disc protrusion abuts the exiting right nerve root at L5-S1. [facility], , 09/01/2024 8:47 AM
== END | disposition home or self-care (01) ==
LOC: RADMRIMAIN 07:37
PROVIDERS: ATTEND Family Medicine
CPT/HCPCS: 72146; 72148